=== PATIENT | female | born 1990 | race Two or more races ===

== ENCOUNTER 2023-03-07 05:44 | Observation (INO) | payer OTHER, SELFPAY ==
[2023-03-07] MEDS: LACTATED RINGER'S SOLUTION 1,000 ML 1000 ML IV ×2 (06:18→07:10)
[2023-03-07 06:23] VITALS: TEMP 36.3
[2023-03-07 06:30] LABS: Basophils Percent Auto 0.2 % (0.2-2.0); Eosinophils Absolute Auto 0.2 10^3/uL (0.0-0.7); Eosinophils Percent Auto 1.6 % (0.9-7.0); Hematocrit 33.2 % (36.0-48.0); Hemoglobin 10.7 g/dL (12.0-16.0); Immature Granulocytes Abs Auto 0.05 10^3/uL (0.00-0.03); Immature Granulocytes Pct Auto 0.5 % (0.0-0.5); Lymphocytes Absolute Auto 2.8 10^3/uL (1.2-3.8); Lymphocytes Percent Auto 28.2 % (20.5-60.0); Mean Corpuscular HGB Conc 32.2 g/dL (29.9-35.2); Mean Corpuscular Hemoglobin 29.6 pg (26.7-34.0); Mean Corpuscular Volume 91.7 fL (81.0-99.0); Mean Platelet Volume 10.1 fL (9.5-13.5); Monocytes Absolute Auto 0.7 10^3/uL (0.3-0.8); Monocytes Percent Auto 6.6 % (1.7-12.0); Neutrophils Absolute Auto 6.3 10^3/uL (1.4-6.5); Neutrophils Percent Auto 62.9 % (43.0-75.0); Platelet Count 261 10^3/uL (150-450); Red Blood Count 3.62 10^6/uL (4.20-5.40); Red Cell Distribution Width 12.6 % (11.0-15.0)
[2023-03-07 06:31] LABS: Bilirubin Urine NEGATIVE (NEGATIVE); Blood Urine NEGATIVE (NEGATIVE); Clarity Urine CLEAR (CLEAR); Color Urine YELLOW (YELLOW); Glucose Urine UA NEGATIVE (NEGATIVE); Ketones Urine NEGATIVE (NEGATIVE); Leukocyte Esterase Urine NEGATIVE (NEGATIVE); Nitrite Urine NEGATIVE (NEGATIVE); Protein Urine NEGATIVE (NEG/TRACE); Specific Gravity Urine 1.025 (1.005-1.025); pH Urine 6.5 (5.0-9.0)
[2023-03-07 06:37] LABS: Bacteria Urine TRACE #/HPF (NONE SEEN); Cast Seen? NONE SEEN #/LPF (NONE SEEN); Crystals Seen? None Seen #/HPF (None Seen); Mucus Urine SMALL (NONE SEEN); RBC Urine 0-2 #/HPF (0-2); Squamous Epithelial Cell Urine MODERATE #/LPF (NONE/RARE); WBC Urine 0-2 #/HPF (NONE SEEN)
[2023-03-07 06:41] LABS: Cannabinoid Screen Urine NEGATIVE (NEGATIVE); Cocaine Screen Urine NEGATIVE (NEGATIVE); Methamphetamines Screen Urine NEGATIVE (NEGATIVE); Opiate Screen Urine NEGATIVE (NEGATIVE); Phencyclidine Screen Urine NEGATIVE (NEGATIVE)
[2023-03-07 06:42] VITALS: TEMP 36.3
[2023-03-07 06:42] LABS: Amphetamine Screen Urine NEGATIVE (NEGATIVE); Barbiturates Screen Urine NEGATIVE (NEGATIVE); Benzodiazepines Screen Urine NEGATIVE (NEGATIVE); Buprenorphine Screen Urine NEGATIVE (NEGATIVE); Methadone Screen Urine NEGATIVE (NEGATIVE); Oxycodone Screen Urine NEGATIVE (NEGATIVE); Tricyclic Antidepressant Urine NEGATIVE (NEGATIVE)
[2023-03-07 06:44] VITALS: BP 132/78
[2023-03-07] MEDS: CEFAZOLIN SODIUM/DEXTROSE,ISO 2 GM/50 ML PIGGYBACK IV (07:11)
[2023-03-07] MEDS: FAMOTIDINE/PF 20 MG/2 ML VIAL IV (07:11)
[2023-03-07] MEDS: CITRIC ACID/SODIUM CITRATE 30 ML SOLUTION ORACIT SHOHL'S SOLN PO (07:11)
--- NOTE | 2023-03-07 07:22 | P.OBHP_ITS ---
OB - H&P: HPI History of Present Illness Chief complaint: c section : 7 Para: 4 Gestational age based on last menstrual period: 39.1 History of Present Dating criteria: LMP confirmed by 1st trimester US care: good care Ultrasounds: normal 1st trimester US and normal mid trimester US complications comment: tobacco abuse Medical complications OB: none Labs Blood type: A (-) negative Rubella: immune RPR/VDLR: nonreactive GBS status: positive HBsAG: negative Review of Systems ROS Status of ROS: 10 or more systems reviewed and unremarkable except as noted in history and below PFSH PFS Medical History (Updated 03/07/23 @ 06:20 by Thomas Thomas) Heart burn ?R12 - Heartburn (ICD-10) Migraine ?G43.909 - Migraine, unspecified, not intractable, without status migrainosus (ICD-10) Surgical History (Updated 03/07/23 @ 06:21 by Thomas Thomas) History of tonsillectomy ?Z90.89 - Acquired absence of other organs (ICD-10) Hx of section ?Z98.891 - History of uterine scar from previous surgery (ICD-10) Family History (Updated 03/07/23 @ 06:23 by Thomas Thomas) Father Family history of myocardial infarction Family history of hypertension Grandmother Family history of cancer Social History (Updated 03/07/23 @ 06:22 by Thomas Thomas) Within the past year, how often did you have a drink containing alcohol: never Score interpretation: A score less than 3 is consistent with normal alcohol consumption. Smoking status: Current every day smoker Non-prescribed substance use: denies use Highest level of school completed/degree received: high school graduate Are you now , , , , never or living with a partner: living with partner In a typical week, how many times do you talk on the telephone with family, friends, or neighbors: 3 or more times per week How often do you get together with friends or relatives: 3 or more times per week How often do you attend protestant or tenriism services: never Little interest or pleasure in doing things: not at all Feeling down, depressed, or hopeless: not at all Feel stressed/tense/nervous/anxious/difficulty sleeping: not at all Do you think of yourself as: straight/heterosexual Gender Identity: female Meds Home Medications and Allergies Home Medications Medication Instructions Recorded Confirmed Type famotidine 20 mg tablet mg 03/07/23 History magnesium oxide 400 mg (241.3 mg mg 03/07/23 History magnesium) tablet vitamin with calcium tab 03/07/23 History no.72-iron 27 mg-folic acid 1 mg tablet ( Vitamins Plus Low Iron) Allergies Allergy/AdvReac Type Severity Reaction Status Date / Time No Known Drug Allergies Allergy Verified 03/07/23 06:18 Exam Constitutional Vital Signs, click to edit/add: Last Vital Signs Temp 97.3 F L 03/07/23 06:42 BP 132/78 03/07/23 06:44 Common normals: no apparent distress and oriented x3 HENMT Common normals: normocephalic Eye Common normals: EOMs intact bilaterally Neck & C-Spine Common normals: no lymphadenopathy Lymph Lymphatic: no lymphedema noted Chest Common normals: inspection of chest normal Respiratory Common normals: normal respiratory effort Cardio Common normals: regular rate and regular rhythm Rate: regular rate Rhythm: regular rhythm GI Common normals: Normal to inspection, nondistended, normoactive bowel sounds present Inspection: normal to inspection Auscultation: normoactive bowel sounds Palpation: soft and tender Percussion: normal to percussion Common normals: no CVA tenderness External Female Exam: normal appearance of the urethra Back & Pelvis Common normals: no CVA tenderness General back: CVA tenderness Extremity Common normals: normal to inspection Neuro Common normals: oriented x3 and moves all extremities Psych Common normals: mental status grossly normal and thought process normal Results Labs Labs: Short CBC 03/07/23 Range/Units 06:15 WBC 10.0 (4.0-11.0) 10^3/uL Hgb 10.7 L (12.0-16.0) g/dL Hct 33.2 L (36.0-48.0) % Plt Count 261 (150-450) 10^3/uL Urine 03/07/23 Range/Units 06:05 Urine Color Yellow (YELLOW) Urine Clarity Clear (CLEAR) Urine pH 6.5 (5.0-9.0) Ur Specific [place] 1.025 (1.005-1.025) Urine Protein Negative (NEG/TRACE) mg/dL Urine Glucose (UA) Negative (NEGATIVE) mg/dL OB - A/P Additional Plan Induction method: none Plan: other (repeat section )
--- NOTE | 2023-03-07 07:35 | W.PC.ACHO ---
Registration Status: ADM IN Primary Language: Armenian Preferred Language: Armenian Active Medications Generic Name Dose Route Start Last Admin Trade Name Freq PRN Reason Stop Dose Admin Lactated Ringer's 1,000 mls @ 1,000 mls/hr 03/07/23 06:00 03/07/23 07:10 Lactated Ringers IV 03/07/23 07:59 1,000 mls/hr .Q1H TRUNG Administration Diet Category Date Time Status NPO Diet Diet 03/07/23 05:50 Active Consults Category Date Time Status Consult to Anesthesiology Routine Cons 03/07/23 Ordered IV Insertion/Site Date of IV Line Insertion [20g 03/07/23 left Hand] IV Insertion Time [20g left 06:10 Hand] Neurology Patient orientation (short person,place,time,situation list)
--- NOTE | 2023-03-07 08:30 | PM.EN ---
Event Note Event Note: report given to Dr Zamudio of patient baby is breech. When he inquired about placenta location and US report reviewed, it is in an anterior position. He then called [facility] for evaluation of patient due to history of 4 sections and an anterior position of placenta. [facility] agrees to see this patient this morning. If the US report is acceptable and low risk for accreta patient will return to [facility] and Dr Zamudio and I will do her C/S tomorrow morning. I explained this to patient and her significant other. Patient is upset and tearful but understands. Her significant other states thank you for doing this now, and not having the problem in the surgery, i appreciate that. We did discuss the risk factors of possible accreta, hemorrhage, emergency hysterectomy. We did discuss that [facility] do not have enough blood at times for such emergencies, and by going to [facility] for evaluation it is the safest decision for her and her baby. PVU Dr Ortiz at [facility] at [facility] has agreed to see the patient this morning and will evaluate where she should deliver based on his assessment. Patient and her significant other both agree on the plan of care and all questions answered. Patient is discharged from unit and she and significant other driving to [place] in private vehicle.
--- OUTSIDE RECORDS SUMMARY | 2023-03-08 08:32 | XMS_ITS | CCD ---
Author Name Unknown Address [address] [place] [address] Organization [facility] Care Team Providers Care Salvage Winder And Inspector Name Role Phone [facility] Unavailable Unavailable [facility] Unavailable Unavailable Chnaa Platt Primary Care Provider [phone] Unavailable Primary Care Provider Unavailabl e Unavailable Primary Care Provider Unavailabl e Unavailable Primary Care Provider Unavailabl e Unavailable Primary Care Provider Unavailabl e Unavailable Primary Care Provider Unavailabl e PAULINA ROSAS Attending Unavailable PAULINA ROSAS Attending Unavailable MOSQUERA, IKER Referring Unavailable MOSQUERA, IKER Referring Unavailable MOSQUERA, IKER Referring Unavailable KENNEDY MARADIAGA Attending Unavailable KENNEDY MARADIAGA Attending Unavailable FLORKENNEDY Le Attending Unavailable KENNEDY MARADIAGA Attending Unavailable KENNEDY MARADIAGA Attending Unavailable Allergies Allergy Classification Reported Allergen(s) Allergy Type Date of Onset Reaction(s) Facility Bee/Wasp/Ant Venom (1 source) bee venom Substance Allergy 11-28-2019 [place] (6 sources) bee venom Propensity to adverse reactions to drug 11-28-2019 [place]- [place], [place] Medications Current Medications Medication Drug Class(es) Dates Sig (Normalized) Sig (Original) acetaminophen 325 mg oral tablet (20 sources) Start: 09-25-2019 take 650 mg by mouth every four hours as needed for pain, then take 4000 mg by mouth every twenty-four hours as needed for pain 650 mg, Oral, EVERY 4 HOURS PRN, Pain Mild (1-3), Fever, Fever >100.5 F (38 C), Starting Sat09/25/19 at 1020 Maximum dose of acetaminophen is 4000 mg from all sources in 24 hours. Start: 03-04-2019 End: 03-04-2019 acetaminophen (TYLENOL) tabl et 1,000 mg Start: 03-01-2019 End: 03-01-2019 acetaminophen (TYLENOL) tabl et 1,000 mg Start: 01-03-2019 End: 01-03-2019 acetaminophen (TYLENOL) tabl et 1,000 mg take 1 tablet by shira th every six hours as needed for pain acetaminophen (TYLENOL) 500 MG tablet Take 500 mg by mouth every 6 hours as needed for Pain 0 Active End: 09-27-2019 take 2 tablets by mouth every six hours as needed for pain acetaminophen (TYLENOL) 500 MG tablet Take 1,000 mg by mouth every 6 hours as needed for Pain 0 09/27/2019 Discontinued (Stop Taking at Discharge) acetaminophen 325 mg / oxyCODONE hydrochloride 5 mg oral tablet (3 sources) Opioid Agonist Start: 09-27-2019 End: 09-30-2019 take 1 tablet by mouth every four hours as needed for pain oxyCODONE-acetaminophen (PERCOCET) 5-325 MG per tablet Indications: delivery delivered Take 1 tablet by mouth every 4 hours as needed (Breakthrough pain.) for up to 3 days. 18 tablet 0 09/27/2019 09/30/2019 Active Start: 09-25-2019 oxyCODONE-acet aminophen (PERCOCET) 5-325 MG per tablet 2 tablet albuterol 0.833 mg/ml / ipratropium bromide 0.167 mg/ml inhalation solution (1 source) Anticholinergic, beta2-Adrenergic Agonist Start: 03-01-2019 ipratropium-albuterol (DUONEB) nebulizer solution 1 ampule Start: 03-01-2019 ipratropium-al buterol (DUONEB) nebulizer solution 1 ampule alginic acid 200 mg / calciu m carbonate 80 mg / magnesium trisilicate 20 mg / sodium bicarbonate 70 mg oral tablet (1 source) Start: 09-26-2019 calcium carbon ate (TUMS) chewable tablet 500 mg calcium chloride 0.0014 meq/ ml / potassium chloride 0.004 meq/ml / sodium chloride 0.103 meq/ml / sodium lactate 0.028 meq/ml injectable solution (3 sources) Start: 09-25-2019 Intravenous, a t 125 mL/hr, CONTINUOUS, Starting Sat09/25/19 at 1045, Start: 09-25-2019 End: 09-25-2019 lactated ringers infusion 1, 000 mL cyclobenzaprine hydrochloride 10 mg oral tablet (1 source) Muscle Relaxant Start: 10-03-2020 End: 10-08-2020 take 1 tablet by mouth once daily as needed for muscle spasms cyclobenzaprine (FLEXERIL) 10 MG tablet Take 1 tablet by mouth nightly as needed for Muscle spasms 5 tablet 0 10/03/2020 10/08/2020 Active docusate sodium 100 mg oral capsule (1 source) Start: 09-25-2019 take 100 mg by mouth twice daily 100 mg, Oral, 2 TIMES DAILY, First dose on Sat09/25/19 at 1045 Do not crush or break. 0.4 ml enoxaparin sodium 100 mg/ml prefilled syringe (1 source) Low Molecular Weight Heparin Start: 09-26-2019 inject 40 mg by subcutaneous injection every twenty-four hours 40 mg, Subcutaneous, EVERY 24 HOURS, First dose on Sat09/26/19 at 0600, [id number] 0.3 ml EPINEPHrine 1 mg/ml auto-injector (6 sources) alpha-Adrenergic Agonist, beta-Adrenergic Agonist, Catecholamine Start: 11-24-2019 EPINEPHrine (EPIPEN 2-YANICK) 0.3 MG/0.3ML SOAJ injection Inject 0.3 mLs into the muscle once for 1 dose Use as directed for allergic reaction 1 each 0 11/24/2019 Active famotidine 20 mg oral tablet (9 sources) Histamine-2 Receptor Antagonist Start: 11-24-2019 End: 12-04-2019 take 1 tablet by mouth twice daily famotidine (PEPCID) 20 MG tablet Take 1 tablet by mouth 2 times daily for 10 days 20 tablet 0 11/24/2019 Active Start: 11-24-2019 famotidine (PE PCID) injection 20 mg Start: 09-25-2019 End: 09-25-2019 famotidine (PEPCID) injectio n 20 mg ibuprofen 600 mg oral tablet (17 sources) Nonsteroidal Anti-inflammatory Drug Start: 10-03-2020 take 1 tablet by mouth every six hours as needed for pain ibuprofen (IBU) 600 MG tablet Take 1 tablet by mouth every 6 hours as needed for Pain 30 tablet 0 10/03/2020 Active Start: 09-27-2019 End: 10-03-2020 take 1 tablet by mouth three times daily as needed for pain ibuprofen (ADVIL;MOTRIN) 800 MG tablet Take 1 tablet by mouth 3 times daily as needed for Pain 20 tablet 1 09/27/2019 10/03/2020 Discontinued (Therapy completed) Start: 09-26-2019 take 800 mg by mouth every eight hours 800 mg, Oral, EVERY 8 HOURS, First dose on 09/26/19 at 1400 Do not crush or chew. Start: 01-03-2019 End: 01-03-2019 ibuprofen (ADVIL;MOTRIN) tab let 600 mg take 1 tablet by shira th every six hours as needed for pain ibuprofen (ADVIL;MOTRIN) 200 MG tablet Take 200 mg by mouth every 6 hours as needed for Pain 0 Active End: 01-27-2019 take 2 tablets by mouth every six hours as needed for pain ibuprofen (ADVIL;MOTRIN) 200 MG tablet Take 400 mg by mouth every 6 hours as needed for Pain 0 01/27/2019 Discontinued (Therapy completed) lidocaine 0.04 mg/mg medicated patch (5 sources) Antiarrhythmic, Amide Local Anesthetic Start: 05-16-2020 lidocaine 4 % external patch 1 patch Start: 05-16-2020 apply 1 dose transde rmal route once daily lidocaine (LIDODERM) 5 % Place 1 patch onto the skin daily 12 hours on, 12 hours off. 10 patch 0 05/16/2020 Active 1 ml methylergonovine maleate 0.2 mg/ml injection (1 source) Ergot Derivative Start: 09-25-2019 200 mcg, Intramuscular, PRN, Bleeding, Starting Sat09/25/19 at 1020 PRN for post- hemorrhage, if not hypertensive. Post-op 1 ml naloxone hydrochloride 0.4 mg/ml injection (1 source) Opioid Antagonist Start: 09-25-2019 0.4 mg, Intravenous, PRN, Opioid Reversal, Starting Sat09/25/19 at 1020, Post-op 24 hr nicotine 0.875 mg/hr transdermal system (1 source) Cholinergic Nicotinic Agonist Start: 09-25-2019 nicotine (NICODERM CQ) 21 MG/24HR 1 patch ondansetron 4 mg disintegrating oral tablet (6 sources) Serotonin-3 Receptor Antagonist Start: 10-03-2020 End: 10-07-2020 take 1 tablet by mouth every eight hours as needed for nausea ondansetron (ZOFRAN ODT) 4 MG disintegrating tablet Take 1 tablet by mouth every 8 hours as needed for Nausea or Vomiting 12 tablet 0 10/03/2020 10/07/2020 Active Start: 10-03-2020 End: 10-03-2020 ondansetron (ZOFRAN) injecti on 4 mg Start: 03-15-2020 End: 03-15-2020 ondansetron (ZOFRAN) injecti on 4 mg Start: 09-25-2019 4 mg, Intraven ous, EVERY 6 HOURS PRN, Nausea, Starting 09/25/19 at 1020, Start: 03-04-2019 End: 03-04-2019 ondansetron (ZOFRAN) injecti on 4 mg Start: 12-14-2018 End: 12-14-2018 ondansetron (ZOFRAN-ODT) dis integrating tablet 4 mg 12 hr orphenadrine citrate 100 mg extended release oral tablet (1 source) Muscle Relaxant Start: 11-28-2019 End: 12-08-2019 take 1 tablet by mouth twice daily orphenadrine (NORFLEX) 100 MG extended release tablet Take 1 tablet by mouth 2 times daily for 10 days 20 tablet 0 11/28/2019 12/08/2019 Active topiramate 50 mg oral tablet (1 source) Start: 01-04-2022 take 1 tablet by mouth once daily topiramate (TOPAMAX) 50 MG tablet TAKE ONE TABLET BY MOUTH DAILY 30 tablet 1 01/04/2022 Active Completed/Discontinued Medications Medication Drug Class(es) Dates Sig (Normalized) Sig (Original) alpha-tocopherol acetate 30 unt / ascorbic acid 100 mg / beta carotene 1000 unt / calcium carbonate 200 mg / calcium pantothenate 7 mg / cholecalciferol 400 unt / docusate sodium 25 mg / ferrous fumarate 29 mg / folic acid 1 mg / niacinamide 15 mg / pyridoxine hydrochloride 20 mg / riboflavin 3 mg / thiamine 3 mg / vitamin b12 0.012 mg / zinc oxide 20 mg oral tablet (20 sources) Vitamin B12, Vitamin D, Vitamin C Start: 01-27-2019 End: 10-03-2020 take 1 tablet by mouth once daily Vit-DSS-Fe Fum-FA ( 19) 29-1 MG TABS Take 1 Dose by mouth daily 30 tablet 0 01/27/2019 10/03/2020 Discontinued (LIST CLEANUP) cefOXitin (MEFOXIN) 2 g in dextrose 5% 50 mL (mini-bag) (1 source) Start: 09-25-2019 End: 09-25-2019 cefOXitin (MEFOXIN) 2 g in dextrose 5% 50 mL (mini-bag) citric acid 66.8 mg/ml / sodium citrate 100 mg/ml oral solution (1 source) Calculi Dissolution Agent, Anti-coagulant Start: 09-25-2019 End: 09-25-2019 citric acid-sodium citrate (BICITRA) solution 30 mL 1 ml diphenhydrAMINE hydrochloride 50 mg/ml cartridge (3 sources) Histamine-1 Receptor Antagonist Start: 05-16-2020 End: 05-16-2020 diphenhydrAMINE (BENADRYL) injection 25 mg Start: 11-24-2019 End: 11-24-2019 diphenhydrAMINE (BENADRYL) i njection 50 mg Start: 10-16-2019 End: 10-16-2019 diphenhydrAMINE (BENADRYL) i njection 50 mg doxylamine succinate 25 mg oral tablet (5 sources) Start: 01-27-2019 End: 03-04-2019 take 1 tablet by mouth once daily as needed for sleep doxyLAMINE succinate (UNISOM) 25 MG tablet Take 1 tablet by mouth nightly as needed for Sleep 14 tablet 0 01/27/2019 03/04/2019 Discontinued (Therapy completed) ferrous sulfate 325 mg oral tablet (18 sources) End: 10-03-2020 take 1 tablet by mouth twice daily ferrous sulfate (IRON 325) 325 (65 Fe) MG tablet Take 325 mg by mouth 2 times daily 0 10/03/2020 Discontinued (LIST CLEANUP) fluticasone propionate 0.05 mg/actuat metered dose nasal spray (8 sources) Corticosteroid Start: 03-01-2019 End: 07-03-2019 take 1 spray(s) nasal route once daily fluticasone (FLONASE) 50 MCG/ACT nasal spray 1 spray by Each Nostril route daily 1 Bottle 0 03/01/2019 07/03/2019 Discontinued (LIST CLEANUP) hydrocortisone acetate 10 mg/ml / pramoxine hydrochloride 10 mg/ml rectal foam (7 sources) Corticosteroid Start: 08-06-2019 End: 10-16-2019 Hydrocort-Pramoxi ne, Perianal, (PROCTOFOAM HC) 1-1 % rectal foam Apply 2 or 3 times a day as needed for pain 1 Can 0 08/06/2019 10/16/2019 Discontinued (LIST CLEANUP) iopamidol (ISOVUE-370) 76 % injection 75 mL (1 source) Start: 10-03-2020 End: 10-03-2020 iopamidol (ISOVUE-370) 76 % injection 75 mL 1 ml ketorolac tromethamine 15 mg/ml cartridge (4 sources) Nonsteroidal Anti-inflammatory Drug, Cyclooxygenase Inhibitor Start: 10-03-2020 End: 10-03-2020 ketorolac (TORADOL) injection 30 mg Start: 03-15-2020 End: 03-15-2020 ketorolac (TORADOL) injectio n 15 mg Start: 10-16-2019 End: 10-16-2019 ketorolac (TORADOL) injectio n 30 mg Start: 09-25-2019 End: 09-26-2019 30 mg, Intravenous, EVERY 6 HOURS, First dose on Sat09/25/19 at 1430, For 4 doses Do not administer for more than 5 days. magnesium citrate (1 source) Start: 08-06-2019 End: 08-06-2019 magnesium citrate solution 296 mL methylPREDNISolone 4 mg oral tablet (3 sources) Corticosteroid Start: 11-24-2019 End: 11-30-2019 methylPREDNISolone (MEDROL, YANICK,) 4 MG tablet Take by mouth. 1 kit 0 11/24/2019 11/28/2019 Discontinued Start: 11-24-2019 End: 11-24-2019 methylPREDNISolone sodium (S NICKY-MEDROL) injection 125 mg 2 ml metoclopramide 5 mg/ml prefilled syringe (2 sources) Dopamine-2 Receptor Antagonist Start: 10-16-2019 End: 10-16-2019 metoclopramide (REGLAN) injection 10 mg Start: 09-25-2019 End: 09-25-2019 metoclopramide (REGLAN) inje ction 10 mg predniSONE 20 mg oral tablet (4 sources) Start: 11-28-2019 End: 10-03-2020 take 1 tablet by mouth three times daily predniSONE (DELTASONE) 20 MG tablet Indications: Strain of lumbar region, initial encounter Take 1 tablet by mouth 3 times daily 15 tablet 0 11/28/2019 10/03/2020 Discontinued (LIST CLEANUP) 2 ml prochlorperazine 5 mg/ml injection (1 source) Phenothiazine Start: 05-16-2020 End: 05-16-2020 prochlorperazine (COMPAZINE) injection 10 mg Start: 05-16-2020 End: 05-16-2020 prochlorperazine (COMPAZINE) injection 10 mg rho(d) immune globulin, human 1500 unt prefilled syringe (2 sources) Human Immunoglobulin G Start: 09-25-2019 End: 09-26-2019 inject 300 ug by intramuscular injection once 300 mcg, Intramuscular, ONCE, Sat09/25/19 at 1045, For 1 dose, Start: 07-03-2019 End: 07-03-2019 rho(D) immune globulin (HYPE RRHO S/D) injection 300 mcg 50 ml sodium chloride 9 mg/m l injection (6 sources) Start: 10-03-2020 End: 10-03-2020 0.9 % sodium chloride bolus Start: 03-15-2020 End: 03-15-2020 0.9 % sodium chloride bolus Start: 10-16-2019 End: 10-17-2019 0.9 % sodium chloride bolus Start: 09-25-2019 10 mL, Intrave nous, EVERY 12 HOURS SCHEDULED (2 times per day), First dose on Sat09/25/19 at 1045, Start: 09-25-2019 take 10 mL intravenous route o nce 10 mL, Intravenous, PRN, Line Care, Starting Sat09/25/19 at 1020 After every IV line use Start: 03-04-2019 End: 03-04-2019 0.9 % sodium chloride bolus vitamin b6 50 mg oral tablet (5 sources) Start: 01-27-2019 End: 03-04-2019 take 0.5 tablet by mouth once daily vitamin B-6 (PYRIDOXINE) 50 MG tablet Take 0.5 tablets by mouth daily 30 tablet 0 01/27/2019 03/04/2019 Discontinued (Therapy completed) Problems Active Problems Problem Classification Problem Date Documented Da te Episodic/Chronic Abdominal pain (20 sources) Epigastric pain; Translations: [Abdominal pain in ] Onset: 6 04-08-2017 Episodic Disorders of lipid metabolism (2 sources) Pure hypercholesterolemia, unspecified; Translations: [Pure hypercholesterolemia, unspecified] Onset: 2 Chronic Esophageal disorders (20 sources) Gastroesophageal reflux disease; Translations: [Gastro-esophageal reflux disease without esophagitis] Onset: 4 11-13-2013 Chronic Headache; including migraine (20 sources) Migraine; Translations: [Migraine, unspecified, not intractable, without status migrainosus] Onset: 7 08-27-2016 Chronic Headache; including migraine (2 sources) Headache disorder; Translations: [Headache] Episodic Hemorrhoids (1 source) External hemorrhoids without complication; Translations: [External hemorrhoids without complication] Episodic Other gastrointestinal disorders (1 source) Constipation; Translations: [Constipation, unspecified constipation type] Episodic Poisoning by nonmedicinal substances (1 source) Allergic reaction to bee sting; Translations: [Local reaction to bee sting, accidental or unintentional, initial encounter] Episodic Polyhydramnios and other problems of amniotic cavity (1 source) Oligohydramnios with problem; Translations: [Oligohydramnios, antepartum, single or unspecified fetus] Episodic Residual codes; unclassified (7 sources) H/O: section; Translations: [Status post repeat low transverse section] 09-25-2019 Episodic Spondylosis; intervertebral disc disorders; other back problems (2 sources) Sciatica; Translations: [Acute back pain with sciatica] Episodic Sprains and strains (10 sources) Low back strain; Translations: [Strain of muscle, fascia and tendon of lower back, initial encounter] Onset: 0 11-28-2019 Episodic Substance-related disorders (10 sources) Nicotine dependence; Translations: [Nicotine dependence, cigarettes, uncomplicated] Onset: 9 09-25-2019 Chronic Unclassified (1 source) Less than 8 weeks gestation of ; Translations: [LESS THAN 8 WEEKS GESTATION OF ] Onset: 6 Unclassified (1 source) Sprain of left wrist; Translations: [Sprain of left wrist, initial encounter] Unclassified (1 source) Patient encounter status; Translations: [ screening for malformation using ultrasonics] Past or Other Problems Problem Classification Problem Date Documented Da te Episodic/Chronic Abdominal hernia (12 sources) Hernia of anterior abdominal wall; Translations: [Ventral hernia without obstruction or gangrene] Onset: 09-25-2019 09-25-2019 Episodic Nausea and vomiting (1 source) Nausea and vomiting; Translations: [Non-intractable vomiting with nausea, unspecified vomiting type] Episodic Nonmalignant breast conditions (20 sources) Breast lump; Translations: [Unspecified lump in the right breast, overlapping quadrants] Onset: 11-14-2017 11-14-2017 Episodic Other complications of ; puerperium affecting management of mother (20 sources) delivery - delivered; Translations: [Encounter for delivery without indication] Onset: 05-03-2017 Resolved: 05-05-2017 05-05-2017 Episodic Other complications of (2 sources) related conditions, unspecified, first trimester; Translations: [Smoking (tobacco) complicating , first trimester] Onset: 10-16-2015 Episodic Other complications of (20 sources) Reduced movement; Translations: [Decreased movements, unspecified trimester, not applicable or unspecified] Onset: 06-18-2019 06-18-2019 Episodic Other complications of (4 sources) Abdominal pain in ; Translations: [Other specified related conditions, unspecified trimester] Onset: 04-08-2017 04-08-2017 Episodic Other connective tissue disease (1 source) Myalgia, other site; Translations: [Myalgia, other site] Onset: 10-30-2021 Episodic Other lower respiratory disease (20 sources) Cough; Translations: [Cough] Resolved: 06-26-2017 06-26-2017 Episodic Other and delivery including normal (20 sources) ; Translations: [Intrauterine ] Onset: 02-18-2017 02-18-2017 Episodic Other upper respiratory infections (1 source) Viral upper respiratory tract infection Episodic Results Test Name Value Interpretation Reference Range Facility US OB 1ST Trimesteron 2022 US OB 1ST Trimester CLINICAL INDICATION: Dating COMPARISON: None FINDINGS: A single intrauterine is seen. The uterus measures 9.7 x 5.4 x 8.0 cm. The maternal ovaries are not visualized. The cervix measures 3.2 cm in length. cardiac activity is 103 bpm. Bradbury-rump length is 0.4 cm for gestational age of 6 weeks 0 days. IMPRESSION: Single living intrauterine with estimated gestational age of 6 weeks 0 days. Estimated due date of 03/13/23. Report reported and signed by Edi Carrizales on 07/18/2022 1602 Normal [facility] XR KNEE LEFT (3 VIEWS)on XR KNEE LEFT (3 VIEWS) EXAM: XR Left Knee, 3 Views EXAM DATE/TIME: 03/03/2022 2:08 pm CLINICAL HISTORY: ORDERING SYSTEM PROVIDED pain TECHNOLOGIST PROVIDED HISTORY: pain TECHNIQUE: Three views of the left knee. COMPARISON: No relevant prior studies available. FINDINGS: Bones/joints: No significant arthritic changes noted. Soft tissues: Prominence of the suprapatellar bursa suggests a small joint effusion. IMPRESSION: 1. Prominence of the suprapatellar bursa suggests a small joint effusion. 2. No evidence of fracture or malalignment. Interpreted by: Van Castle MD Signed by: Van Castle MD 03/03/22 Final result Normal [facility] 1. Prominence of the suprapatellar bursa suggests a small joint effusion. 2. No evidence of fracture or malalignment. [facility] CONSOL[facility] EXAM: XR Left Knee, 3 Views EXAM DATE/TIME: 03/03/2022 2:08 pm CLINICAL HISTORY: ORDERING SYSTEM PROVIDED pain TECHNOLOGIST PROVIDED HISTORY: pain TECHNIQUE: Three views of the left knee. COMPARISON: No relevant prior studies available. FINDINGS: Bones/joints: No significant arthritic changes noted. Soft tissues: Prominence of the suprapatellar bursa suggests a small joint effusion. [facility] Van Castle MD - 03/03/2022 EXAM: XR Left Knee, 3 Views EXAM DATE/TIME: 03/03/2022 2:08 pm CLINICAL HISTORY: ORDERING SYSTEM PROVIDED pain TECHNOLOGIST PROVIDED HISTORY: pain TECHNIQUE: Three views of the left knee. COMPARISON: No relevant prior studies available. FINDINGS: Bones/joints: No significant arthritic changes noted. Soft tissues: Prominence of the suprapatellar bursa suggests a small joint effusion. IMPRESSION: 1. Prominence of the suprapatellar bursa suggests a small joint effusion. 2. No evidence of fracture or malalignment. [facility] Work Phone: Radiology Study observation (narrative) [facility] Work Phone: XR KNEE LEFT (3 VIEWS)Darron langley By: Van Castle on 03-03-2022 [facility] Work Phone: CBC with Diffon 10-30-2021 Abs. Basophil 0.05 k/uL Normal 0.00-0.20 [facility] Comment on above: Performed By: #### C DP, CP #### [address] [place], [place] [id number] Custom Frame Assembler: Jasson Osorio MD Abs.Imm.Granulocyte 0.04 k/uL Normal 0.00-0.30 [facility] Comment on above: Performed By: #### C DP, CP #### [address] [place], [facility] Custom Frame Assembler: Jasson Osorio MD Abs.Neutrophil (Seg) 4.86 k/uL Normal 1.50-8.10 [facility] Comment on above: Performed By: #### C DP, CP #### [address] [place] [address] Custom Frame Assembler: Jasson Osorio MD Basophils/100 WBC (Bld) 1 % Normal 0-2 [facility] Comment on above: Performed By: #### C DP, CP #### [address] [place] [address] Custom Frame Assembler: Jasson Osorio MD Eosinophils (Bld) [#/Vol] 0.19 10*3/uL Normal 0.00-0.44 [facility] Comment on above: Performed By: #### C DP, CP #### [address] [place], [place] [id number] Custom Frame Assembler: Jasson Osorio MD Eosinophils/100 WBC (Bld) 2 % Normal 1-4 [facility] Comment on above: Performed By: #### C DP, CP #### [facility] [address] [place], [place] [id number] Custom Frame Assembler: Jasson Osorio MD Erythrocyte distribution width (RBC) [Ratio] 12.7 % Normal 11.8-14.4 [facility] Comment on above: Performed By: #### C DP, CP #### [address] [place], [facility]83 Custom Frame Assembler: Jasson Osorio MD Hematocrit (Bld) [Volume fraction] 39.6 % Normal 36.3-47.1 [facility] Comment on above: Performed By: #### C DP, CP #### [address] [place], [place] [id number] Custom Frame Assembler: Jasson Osorio MD Hemoglobin (Bld) [Mass/Vol] 12.6 g/dL Normal 11.9-15.1 [facility] Comment on above: Performed By: #### C DP, CP #### [address] [place], [place] [id number] Custom Frame Assembler: Jasson Osorio MD Immature granulocytes/100 WBC (Bld) 1 % High 0 [facility] Comment on above: Performed By: #### C DP, CP #### [address] [place], [place] [id number] Custom Frame Assembler: Jasson Osorio MD Lymphocytes (Bld) [#/Vol] 3.16 10*3/uL Normal 1.10-3.70 [facility] Comment on above: Performed By: #### C DP, CP #### [address] [place], [place] [id number] Custom Frame Assembler: Jasson Osorio MD Lymphocytes/100 WBC (Bld) 36 % Normal 24-43 [facility] Comment on above: Performed By: #### C DP, CP #### [address] [place] [address] Custom Frame Assembler: Jasson Osorio MD MCH (RBC) [Entitic mass] 28.6 pg Normal 25.2-33.5 [facility] Comment on above: Performed By: #### C DP, CP #### [address] [place], [facility]83 Custom Frame Assembler: Jasson Osorio MD MCHC (RBC) [Mass/Vol] 31.8 g/dL Normal 28.4-34.8 [facility] Comment on above: Performed By: #### C DP, CP #### [address] [place] [id number] Custom Frame Assembler: Jasson Osorio MD MCV (RBC) [Entitic vol] 89.8 fL Normal 82.6-102.9 [facility] Comment on above: Performed By: #### C DP, CP #### [address] [place], [facility]83 Custom Frame Assembler: Jasson Osorio MD Monocytes (Bld) [#/Vol] 0.49 10*3/uL Normal 0.10-1.20 [facility] [facility] Comment on above: Performed By: #### C DP, CP #### [address] [place], [facility]83 Custom Frame Assembler: Jasson Osorio MD Monocytes/100 WBC (Bld) 6 % Normal 3-12 [facility] Comment on above: Performed By: #### C DP, CP #### [address] [place], [place] [id number] Custom Frame Assembler: Jasson Osorio MD Neutrophil (Seg) 54 % Normal 36-65 [facility] Comment on above: Performed By: #### C DP, CP #### [address] [place], [place] [id number] Custom Frame Assembler: Jasson Osorio MD NRBC Automated 0.0 per 100 WBC Normal 0.0 [facility] Comment on above: Performed By: #### C DP, CP #### [facility] [address] [place] [address] [place] [id number] Custom Frame Assembler: Jasson Osorio MD Platelet mean volume (Bld) [Entitic vol] 10.7 fL Normal 8.1-13.5 [facility] Comment on above: Performed By: #### C DP, CP #### [address] [place] [id number] Custom Frame Assembler: Jasson Osorio MD Platelets (Bld) [#/Vol] 263 10*3/uL Normal 138-453 [facility] Comment on above: Performed By: #### C DP, CP #### [address] [place] [address] Custom Frame Assembler: Jasson Osorio MD RBC (Bld) [#/Vol] 4.41 10*6/uL Normal 3.95-5.11 [facility] Comment on above: Performed By: #### C DP, CP #### [address] [place] [id number] Custom Frame Assembler: Jasson Osorio MD WBC (Bld) [#/Vol] 8.8 10*3/uL Normal 3.5-11.3 [facility] Comment on above: Performed By: #### C DP, CP #### [address] [place] [id number] Custom Frame Assembler: Jasson Osorio MD CT ABDOMEN PELVIS WO CONTRAS Ton 10-30-2021 CT ABDOMEN PELVIS WO CONTRAST EXAMINATION: CT OF THE ABDOMEN AND PELVIS WITHOUT CONTRAST 10/30/2021 8:56 am TECHNIQUE: CT of the abdomen and pelvis was performed without the administration of intravenous contrast. Multiplanar reformatted images are provided for review. Automated exposure control, iterative reconstruction, and/or weight based adjustment of the mA/kV was utilized to reduce the radiation dose to as low as reasonably achievable. COMPARISON: CT abdomen and pelvis performed 10/03/2020. HISTORY: ORDERING SYSTEM PROVIDED HISTORY: left flank pain TECHNOLOGIST PROVIDED HISTORY: left flank pain Decision Support Exception - unselect if not a suspected or confirmed emergency medical condition->Emergenc y Medical Condition (MA) Is the patient ?->No FINDINGS: Lower Chest: The lung bases are without consolidation or effusion. The visualized cardiac structures are unremarkable. Organs: The liver and spleen are normal size and overall attenuation. The gallbladder, pancreas, and adrenal glands are unremarkable. The kidneys are without obstructive uropathy. The urinary bladder is unremarkable. GI/Bowel: The stomach is contracted and otherwise unremarkable. Loops of small bowel are normal in caliber without evidence for obstruction. The colon contains air and fecal residue. The appendix is normal. There is no free air or free fluid. Pelvis: The uterus is age-appropriate. Peritoneum/Retroper itoneum: The psoas muscles are symmetric. The abdominal aorta is normal in caliber. The inferior vena cava is unremarkable. There is no retroperitoneal or mesenteric adenopathy. Bones/Soft Tissues: There is a large fat containing periumbilical hernia. There is no acute osseous abnormality. IMPRESSION: No acute abdominal or pelvic abnormality. Large fat containing periumbilical hernia. Interpreted by: Destin Wilson MD Signed by: Destin Wilson MD 10/30/21 Final result Normal [facility] Comp Metabolic Profon 2021 ALT [Catalytic activity/Vol] 26 U/L Normal 5-33 [facility] Comment on above: Performed By: #### C DP, CP #### [facility] [address] [place] [address] [place] [address] Custom Frame Assembler: Jasson Osorio MD AST [Catalytic activity/Vol] 29 U/L Normal <32 [facility] Comment on above: Performed By: #### C DP, CP #### [facility] [address] [place] [address] Custom Frame Assembler: Jasson Osorio MD Potassium [Moles/Vol] 4.5 mmol/L Normal 3.7-5.3 [facility] Comment on above: Performed By: #### C DP, CP #### [facility] [address] [place] [address] [place] [address] Custom Frame Assembler: Jasson Osorio MD (cont.) Normal [facility] Comment on above: Result Comment: Aver age GFR for 30-39 years old: 107 mL/min/1.73sq m Chronic Kidney Disease: <60 mL/min/1.73sq m Kidney failure: <15 mL/min/1.73sq m eGFR calculated using average adult body mass. Additional eGFR calculator available at: http://www.Oxtex/multiple_crcl_2012.htm Performed By: #### C DP, CP #### [address] [place] [address] Custom Frame Assembler: Jasson Osorio MD Albumin [Mass/Vol] 4.2 g/dL Normal 3.5-5.2 [facility] Comment on above: Performed By: #### C SOFÍA, CP #### [facility] [address] [place] [address] [place], [place] [id number] Custom Frame Assembler: Jasson Osorio MD Albumin/Glob Ratio 1.8 Normal 1.0-2.5 [facility] Comment on above: Performed By: #### C DP, CP #### [facility] [address] [place] [address] [place], [place] [id number] Custom Frame Assembler: Jasson Osorio MD Alkaline Phos 67 U/L Normal 35-104 [facility] Comment on above: Performed By: #### C DP, CP #### [facility] [address] [place] [address] [place], [place] [id number] Custom Frame Assembler: Jasson Osorio MD Anion gap [Moles/Vol] 11 mmol/L Normal 9-17 [facility] Comment on above: Performed By: #### C DP, CP #### [facility] [address] [place] [address] [place] [address] Custom Frame Assembler: Jasson Osorio MD Bilirubin [Mass/Vol] 0.27 mg/dL Low 0.3-1.2 [facility] Comment on above: Performed By: #### C DP, CP #### [facility] [address] [place], [place] [id number] Custom Frame Assembler: Jasson Osorio MD BUN/CRE Ratio 23 High 9-20 [facility] Comment on above: Performed By: #### C DP, CP #### [facility] [address] [place], [place] [id number] Custom Frame Assembler: Jasson Osorio MD Calcium [Mass/Vol] 8.9 mg/dL Normal 8.6-10.4 [facility] Comment on above: Performed By: #### C DP, CP #### [facility] [address] [place], [place] [id number] Custom Frame Assembler: Jasson Osorio MD Chloride [Moles/Vol] 106 mmol/L Normal 98-107 [facility] Comment on above: Performed By: #### C DP, CP #### [facility] [address] [place], [place] [id number] Custom Frame Assembler: Jasson Osorio MD CO2 [Moles/Vol] 23 mmol/L Normal 20-31 [facility] Comment on above: Performed By: #### C DP, CP #### [facility] [address] [place], [place] [id number] Custom Frame Assembler: Jasson Osorio MD Creatinine [Mass/Vol] 0.52 mg/dL Normal 0.50-0.90 [facility] Comment on above: Performed By: #### C DP, CP #### [facility] [address] [place], [place] [id number] Custom Frame Assembler: Jasson Osorio MD GFR, Amer >60 Normal >60 [facility] Comment on above: Performed By: #### C DP, CP #### [facility] [address] [place], [place] [id number] Custom Frame Assembler: Jasson Osorio MD GFR,non Amer >60 Normal >60 [facility] Comment on above: Performed By: #### C DP, CP #### [facility] [address] [place], [place] [id number] Custom Frame Assembler: Jasson Osorio MD Glucose [Mass/Vol] 105 mg/dL High 70-99 [facility] Comment on above: Performed By: #### C DP, CP #### [facility] [address] [place], [place] [id number] Custom Frame Assembler: Jasson Osorio MD Protein [Mass/Vol] 6.6 g/dL Normal 6.4-8.3 [facility] Comment on above: Performed By: #### C DP, CP #### [facility] [address] [place] [address] [place], [place] [id number] Custom Frame Assembler: Jasson Osorio MD Sodium [Moles/Vol] 140 mmol/L Normal 135-144 [facility] Comment on above: Performed By: #### C DP, CP #### [address] [place], [place] [id number] Custom Frame Assembler: Jasson Osorio MD Staging: Normal [facility] Comment on above: Result Comment: Stag e 1: Some kidney damage normal GFR Stage 2: Mild kidney damage GFR 60-89 Stage 3: Moderate kidney damage GFR 30-59 Stage 4: Severe kidney damage GFR 15-29 Stage 5: Severe kidney damage GFR <15 ESRD - chronic treatment by dialysis or transplant Performed By: #### C DP, CP #### [facility] [address] [place], [place] [id number] Custom Frame Assembler: Jasson Osorio MD Urea nitrogen [Mass/Vol] 12 mg/dL Normal 6-20 [facility] Comment on above: Performed By: #### C DP, CP #### [facility] [address] [place], [place] [id number] Custom Frame Assembler: Jasson Osorio MD HCG, ,Urineon 10-30 Beta HCG ( test) Ql (U) Negative Normal NEG [facility] Comment on above: Result Comment: Spec imens with hCG levels near the threshold of the test (25 mIU/mL) may give a negative or indeterminate result. In such cases, another test should be performed with a new specimen in 48-72 hours. If early is suspected clinically in this setting, correlation with quantitative serum b-hCG level is suggested. [facility] has confirmed the use of plasma for this test. This has not been cleared or approved by the U.S. Food and Drug Administration. The FDA has determined that such clearance is not necessary. Performed By: #### U HCG, UMICAO, UAX #### [facility] [address] [place] [address] Custom Frame Assembler: Jasson Osorio MD UA w/Reflex Cultureon 2021 Bilirubin, SemiQt,Ur Negative Normal NEG [facility] Comment on above: Performed By: #### U HCG, UMICAO, UAX #### [facility] [address] [place] [address] Custom Frame Assembler: Jasson Osorio MD Blood, Urine 1+ Abnormal NEG [facility] Comment on above: Performed By: #### U HCG, UMICAO, UAX #### [facility] [address] [place], [place] [id number] Custom Frame Assembler: Jasson Osorio MD Clarity (U) Clear Normal CLEAR [facility] Comment on above: Performed By: #### U HCG, UMICAO, UAX #### [facility] [address] [place] [address] Custom Frame Assembler: Jasson Osorio MD Color (U) Yellow Normal YEL [facility] Comment on above: Performed By: #### U HCG, UMICAO, UAX #### [facility] [address] [place] [address] Custom Frame Assembler: Jasson Osorio MD Glucose Ql (U) Negative Normal NEG [facility] Comment on above: Performed By: #### U HCG, UMICAO, UAX #### [facility] [address] [place] [address] [place], [place] [id number] Custom Frame Assembler: Jasson Osorio MD Ketones Ql (U) Negative Normal NEG [facility] Comment on above: Performed By: #### U HCG, UMICAO, UAX #### [facility] [address] [place] [address] Custom Frame Assembler: Jasson Osorio MD Leukocyte esterase Test strip Ql (U) Negative Normal NEG [facility] Comment on above: Performed By: #### U HCG, UMICAO, UAX #### [address] [place], [place] [id number] Custom Frame Assembler: Jasson Osorio MD Nitrite,Ur Negative Normal NEG [facility] Comment on above: Performed By: #### U HCG, UMICAO, UAX #### [facility] [address] [place] [address] [place] [address] Custom Frame Assembler: Jasson Osorio MD PH,Ur 6.0 Normal 5.0-9.0 [facility] Comment on above: Performed By: #### U HCG, UMICAO, UAX #### [address] [place], [place] [id number] Custom Frame Assembler: Jasson Osorio MD Protein Ql (U) Negative Normal NEG [facility] Comment on above: Performed By: #### U HCG, UMICAO, UAX #### [facility] [address] [place] [address] [place], [place] [phone] Custom Frame Assembler: Jasson Osorio MD Spec. Kiana,Ur 1.025 High 1.010-1.020 [facility] Comment on above: Performed By: #### U HCG, UMICAO, UAX #### [facility] [address] [place] [address] [place], [place] [id number] Custom Frame Assembler: Jasson Osorio MD Urobilinogen,Ur Normal Normal NORM [facility] Comment on above: Performed By: #### U HCG, UMICAO, UAX #### [facility] [address] [place] [address] Custom Frame Assembler: Jasson Osorio MD Urinalysis,Microon 2 Epithelial cells LM Ql (Urine sed) 5 TO 10 Normal 0-25 [facility] Comment on above: Performed By: #### U HCG, UMICAO, UAX #### [facility] [address] [place] [address] Custom Frame Assembler: Jasson Osorio MD Urine RBC's 0 TO 2 Normal 0-2 [facility] Comment on above: Performed By: #### U HCG, UMICAO, UAX #### [facility] [address] [place], [facility]83 Custom Frame Assembler: Jasson Osorio MD Urine WBC's 2 TO 5 Normal 0-5 [facility] Comment on above: Performed By: #### U HCG, UMICAO, UAX #### [facility] [address] [place] [address] Custom Frame Assembler: Jasson Osorio MD [facility] ILIR DIGITAL DIAGNOSTIC BILATERALon 06-30-2021 [facility] ILIR DIGITAL DIAGNOSTIC BILATERAL EXAMINATION: DIAGNOSTIC DIGITAL BILATERAL BREASTS MAMMOGRAM WITH TOMOSYNTHESIS; TARGETED ULTRASOUND OF THE LEFT BREAST, 06/30/2021 8:44 am TECHNIQUE: Diagnostic mammography of the bilateral breasts was performed with tomosynthesis. 2D standard and 3D tomosynthesis combination imaging performed through both breasts. Computer aided detection was utilized in the interpretation of this exam.; Target ultrasound of the left breast was performed. Views: COMPARISON: November 14, 2017 HISTORY: ORDERING SYSTEM PROVIDED HISTORY: Left breast mass TECHNOLOGIST PROVIDED HISTORY: Is the patient ?->No FINDINGS: Mammogram: Breasts are composed of scattered fibroglandular density. There is no dominant mass, architectural distortion or concerning grouping of microcalcification in either breast. Benign-appearing calcifications are stable. Ultrasound: Correlating with the area palpable concern directed by the patient 3 o'clock position 1 cm from nipple is a rounded 3 x 3 x 3 mm simple cyst with well-defined margins and anechoic echotexture wider than tall. IMPRESSION: No mammographic evidence of malignancy. BIRADS: BIRADS - CATEGORY 2 Benign Findings. Normal interval follow-up is recommended in 12 months. OVERALL ASSESSMENT - BENIGN A letter of notification will be sent to the patient regarding the results. [employer] recommends annual mammograms for women 40 years and older. Interpreted by: Lex Colunga DO Signed by: Lex Colunga DO 06/30/21 Final result Normal [facility] Radiology Study observation (narrative) [employer] Phone: No Panel Informationon 06-30 No mammographic evidence of malignancy. BIRADS: BIRADS - CATEGORY 2 Benign Findings. Normal interval follow-up is recommended in 12 months. OVERALL ASSESSMENT - BENIGN A letter of notification will be sent to the patient regarding the results. [employer] recommends annual mammograms for women 40 years and older. [facility] EXAMINATION: DIAGNOSTIC DIGITAL BILATERAL BREASTS MAMMOGRAM WITH TOMOSYNTHESIS; TARGETED ULTRASOUND OF THE LEFT BREAST, 06/30/2021 8:44 am TECHNIQUE: Diagnostic mammography of the bilateral breasts was performed with tomosynthesis. 2D standard and 3D tomosynthesis combination imaging performed through both breasts. Computer aided detection was utilized in the interpretation of this exam.; Target ultrasound of the left breast was performed. Views: COMPARISON: November 14, 2017 HISTORY: ORDERING SYSTEM PROVIDED HISTORY: Left breast mass TECHNOLOGIST PROVIDED HISTORY: Is the patient ?->No FINDINGS: Mammogram: Breasts are composed of scattered fibroglandular density. There is no dominant mass, architectural distortion or concerning grouping of microcalcification in either breast. Benign-appearing calcifications are stable. Ultrasound: Correlating with the area palpable concern directed by the patient 3 o'clock position 1 cm from nipple is a rounded 3 x 3 x 3 mm simple cyst with well-defined margins and anechoic echotexture wider than tall. [facility] No Panel InformationOrdered By: Lex Colunga on 06-30-2021 [facility] Phone: US BREAST LIMITED LEFTon US BREAST LIMITED LEFT EXAMINATION: DIAGNOSTIC DIGITAL BILATERAL BREASTS MAMMOGRAM WITH TOMOSYNTHESIS; TARGETED ULTRASOUND OF THE LEFT BREAST, 06/30/2021 8:44 am TECHNIQUE: Diagnostic mammography of the bilateral breasts was performed with tomosynthesis. 2D standard and 3D tomosynthesis combination imaging performed through both breasts. Computer aided detection was utilized in the interpretation of this exam.; Target ultrasound of the left breast was performed. Views: COMPARISON: November 14, 2017 HISTORY: ORDERING SYSTEM PROVIDED HISTORY: Left breast mass TECHNOLOGIST PROVIDED HISTORY: Is the patient ?->No FINDINGS: Mammogram: Breasts are composed of scattered fibroglandular density. There is no dominant mass, architectural distortion or concerning grouping of microcalcification in either breast. Benign-appearing calcifications are stable. Ultrasound: Correlating with the area palpable concern directed by the patient 3 o'clock position 1 cm from nipple is a rounded 3 x 3 x 3 mm simple cyst with well-defined margins and anechoic echotexture wider than tall. IMPRESSION: No mammographic evidence of malignancy. BIRADS: BIRADS - CATEGORY 2 Benign Findings. Normal interval follow-up is recommended in 12 months. OVERALL ASSESSMENT - BENIGN A letter of notification will be sent to the patient regarding the results. [employer] recommends annual mammograms for women 40 years and older. Interpreted by: eLx Colunga DO Signed by: Lex Colunga DO 06/30/21 Final result Normal [facility] Radiology Study observation (narrative) [facility] Work Phone: CBC Auto DifferentialOrdered By: Ken Jensen on 10-03-2020 Absolute Eos # 0.25 [facility] Work Phone: Absolute Immature Granulocyte <0.03 [facility] Work Phone: Absolute Lymph # 2.85 [facility] Work Phone: Absolute [place] # 0.54 [facility] Work Phone: Basophils (Bld) [#/Vol] 0.04 10*3/uL [facility] Work Phone: Basophils/100 WBC (Bld) 0 % 0 - 2 % M [employer] Phone: Differential Type NOT REPORTED [employer] Phone: Eosinophils/100 WBC (Bld) 3 % 1 - 4 % [employer] Phone: Hematocrit (Bld) [Volume fraction] 43.4 % 36.3 - 47.1 % [employer] Phone: Hemoglobin.gastrointest inal spec 1 Ql (Stl) 14.2 g/dL 11.9 - 15.1 g/dL [employer] Phone: Immature granulocytes/100 WBC (Bld) 0 % 0 [employer] Phone: Lymphocytes/100 WBC (Bld) 32 % 24 - 43 % [employer] Phone: MCH (RBC) [Entitic mass] 28.8 pg 25.2 - 33.5 pg [employer] Phone: MCHC (RBC) [Mass/Vol] 32.7 g/dL 28.4 - 34.8 g/dL [employer] Phone: MCV (RBC) [Entitic vol] 88.0 fL 82.6 - 102.9 fL [employer] Phone: Monocytes/100 WBC (Bld) 6 % 3 - 12 % M [employer] Phone: NRBC Automated 0.0 0.0 per 100 WBC [employer] Phone: Platelet distribution width (Bld) [Ratio] 12.0 % 11.8 - 14.4 % [employer] Phone: Platelet Estimate NOT REPORTED [employer] Phone: Platelet mean volume (Bld) [Entitic vol] 9.2 fL 8.1 - 13.5 fL [employer] Phone: Platelets (Bld) [#/Vol] 280 10*3/uL [employer] Phone: RBC (Bld) [#/Vol] 4.93 10*6/uL 3.95 - 5.1 1 m/uL [employer] Work Phone: RBC (Bld) [#/Vol] NOT REPORTED [employer] Phone: Segmented neutrophils/100 WBC (Bld) 59 % 36 - 65 % [employer] Work Phone: Segs Absolute 5.20 [employer] Work Phone: WBC (Bld) [#/Vol] 8.9 10*3/uL [employer] Work Phone: WBC (Bld) [#/Vol] NOT REPORTED [employer] Phone: [employer] Work Phone: CT ABDOMEN PELVIS W IV CONTR AST Additional Contrast? NoneOrdered By: Ken Jensen on 10-03-2020 Hepatic steatosis. No acute process or significant abnormality in the abdomen or pelvis to explain the patient's current symptoms. [employer] Phone: EXAMINATION: CT OF THE ABDOMEN AND PELVIS WITH CONTRAST 10/03/2020 2:53 pm TECHNIQUE: CT of the abdomen and pelvis was performed with the administration of intravenous contrast. Multiplanar reformatted images are provided for review. Dose modulation, iterative reconstruction, and/or weight based adjustment of the mA/kV was utilized to reduce the radiation dose to as low as reasonably achievable. COMPARISON: March 15, 2020. HISTORY: ORDERING SYSTEM PROVIDED HISTORY: abd pain n/v TECHNOLOGIST PROVIDED HISTORY: abd pain n/v Decision Support Exception - unselect if not a suspected or confirmed emergency medical condition->Emergenc y Medical Condition (MA) FINDINGS: Lower Chest: No significant abnormality at the lung bases. Organs: Hepatic steatosis is present. No focal liver lesion. No calcified gallstones or biliary ductal dilatation. The spleen is normal in size without focal lesion. The pancreas and the adrenal glands are unremarkable. The kidneys enhance symmetrically without collecting system dilatation. No focal renal lesion. GI/Bowel: The appendix is normal. No bowel obstruction. Pelvis: The urinary bladder, uterus and adnexa are within normal limits. Peritoneum/Retroper itoneum: No abdominal lymphadenopathy or ascites. Bones/Soft Tissues: Large fat containing umbilical hernia is redemonstrated. No significant osseous abnormality. [employer] Phone: Cesar, [employer] Incoming Radiant Results From [employer] - 10/03/2020 4:18 PM EDT EXAMINATION: CT OF THE ABDOMEN AND PELVIS WITH CONTRAST 10/03/2020 2:53 pm TECHNIQUE: CT of the abdomen and pelvis was performed with the administration of intravenous contrast. Multiplanar reformatted images are provided for review. Dose modulation, iterative reconstruction, and/or weight based adjustment of the mA/kV was utilized to reduce the radiation dose to as low as reasonably achievable. COMPARISON: March 15, 2020. HISTORY: ORDERING SYSTEM PROVIDED HISTORY: abd pain n/v TECHNOLOGIST PROVIDED HISTORY: abd pain n/v Decision Support Exception - unselect if not a suspected or confirmed emergency medical condition->Emergenc y Medical Condition (MA) FINDINGS: Lower Chest: No significant abnormality at the lung bases. Organs: Hepatic steatosis is present. No focal liver lesion. No calcified gallstones or biliary ductal dilatation. The spleen is normal in size without focal lesion. The pancreas and the adrenal glands are unremarkable. The kidneys enhance symmetrically without collecting system dilatation. No focal renal lesion. GI/Bowel: The appendix is normal. No bowel obstruction. Pelvis: The urinary bladder, uterus and adnexa are within normal limits. Peritoneum/Retroper itoneum: No abdominal lymphadenopathy or ascites. Bones/Soft Tissues: Large fat containing umbilical hernia is redemonstrated. No significant osseous abnormality. IMPRESSION: Hepatic steatosis. No acute process or significant abnormality in the abdomen or pelvis to explain the patient's current symptoms. [employer] Phone: [employer] Phone: Comprehensive Metabolic Pane l w/ Reflex to MGOrdered By: Ken Jensen on 10-03-2020 Albumin [Mass/Vol] 4.5 g/dL 3.5 - 5.2 g/dL [employer] Phone: Albumin/Globulin [Mass ratio] 1.4 {ratio} [employer] Phone: ALP (Bld) [Catalytic activity/Vol] 59 U/L 35 - 104 U/L [employer] Phone: ALT [Catalytic activity/Vol] 24 U/L 5 - 33 U/L [employer] Phone: Anion gap [Moles/Vol] 13 mmol/L 9 - 17 mmol/L [employer] Phone: AST [Catalytic activity/Vol] 21 U/L <32 [employer] Phone: Bilirubin [Mass/Vol] 0.41 mg/dL 0.3 - 1 .2 mg/dL [employer] Phone: Calcium [Mass/Vol] 9.2 mg/dL 8.6 - 10. 4 mg/dL [employer] Phone: Chloride [Moles/Vol] 105 mmol/L 98 - 10 7 mmol/L [employer] Phone: CO2 [Moles/Vol] 23 mmol/L 20 - 31 mmol/L [employer] Phone: Creatinine [Mass/Vol] 0.69 mg/dL 0.50 - 0.90 mg/dL [employer] Phone: Free PSA/Total PSA [Mass fraction] 7.7 g/dL 6.4 - 8.3 g/dL [employer] Phone: GFR >60 >60 mL/min [employer] Phone: GFR Non- >60 >60 mL/min [employer] Phone: Glucose [Mass/Vol] 109 mg/dL High 70 - 99 mg/dL [facility] [place] Phone: Interpretation and review of laboratory results Abnormal [facility] Phone: Potassium [Moles/Vol] 4.6 mmol/L 3.7 - 5.3 mmol/L [employer] Phone: Sodium [Moles/Vol] 141 mmol/L 135 - 144 mmol/L [employer] Phone: Urea nitrogen (BldV) [Mass/Vol] 16 mg/dL 6 - 20 mg/dL [employer] Phone: Urea nitrogen/Creatinine (Bld) [Mass ratio] 23 High [employer] Phone: HCG Qualitative, SerumOrdere d By: Ken Jensen on 10-03-2020 hCG Qual Negative NEGATIVE [employer] Phone: Comment on above: Specimens with hCG l evels near the threshold of the test (25 mIU/mL) may give a negative or indeterminate result. In such cases, another test should be performed with a new specimen in 48-72 hours. If early is suspected clinically in this setting, correlation with quantitative serum b-hCG level is suggested. [facility] has confirmed the use of plasma for this test. This has not been cleared or approved by the U.S. Food and Drug Administration. The FDA has determined that such clearance is not necessary. [employer] Phone: Laboratory - Chemistry and C hemistry - challengeOrdered By: Ken Jensen on 10-03-2020 GFR/1.73 sq M.predicted MDRD (S/P/Bld) [Vol rate/Area] [employer] Phone: Comment on above: Average GFR for 30-3 9 years old: 107 mL/min/1.73sq m Chronic Kidney Disease: <60 mL/min/1.73sq m Kidney failure: <15 mL/min/1.73sq m eGFR calculated using average adult body mass. Additional eGFR calculator available at: http://www.[employer]tex/multiple_crcl_2012.htm Stage 1: Some kidney damage normal GFR Stage 2: Mild kidney damage GFR 60-89 Stage 3: Moderate kidney damage GFR 30-59 Stage 4: Severe kidney damage GFR 15-29 Stage 5: Severe kidney damage GFR <15 ESRD - chronic treatment by dialysis or transplant LipaseOrdered By: Vinod on 10-03-2020 Lipase [Catalytic activity/Vol] 33 U/L 13 - 60 U/L [employer] Work Phone: Microscopic UrinalysisOrdere d By: Ken Jensen on 10-03-2020 - [facility] Work Phone: Amorphous, UA NOT REPORTED None [facility] Work Phone: Bacteria, UA 1+ Abnormal None [facility] Work Phone: Casts UA NOT REPORTED /LPF [facility] Work Phone: Crystals, UA NOT REPORTED None /HPF [facility] Work Phone: Epithelial Cells UA 5 TO 10 [facility] Work Phone: Interpretation and review of laboratory results Abnormal [facility] Work Phone: Mucus, UA 1+ Abnormal None [facility] Work Phone: Other Observations UA NOT REPORTED NOT REQ. [facility] Work Phone: RBC, UA 0 TO 2 [facility] Work Phone: Renal Epithelial, UA NOT REPORTED 0 /HPF [facility] Work Phone: Trichomonas, UA NOT REPORTED None [facility] Work Phone: WBC, UA 5 TO 10 [facility] Work Phone: Yeast, UA NOT REPORTED None [facility] Work Phone: [facility] Work Phone: No Panel InformationOrdered By: Ken Jensen on 10-03-2020 [employer] Work Phone: Urinalysis Reflex to Culture Ordered By: Ken Jensen on 10-03-2020 Bilirubin Urine Negative NEGATIVE [facility] Work Phone: Color, UA YELLOW YELLOW [facility] Work Phone: Glucose, Ur Negative NEGATIVE [facility] [employer] Work Phone: Interpretation and review of laboratory results Abnormal [facility] [employer] Work Phone: Ketones Ql (U) Negative NEGATIVE [facility] Work Phone: Leukocyte esterase Test strip Ql (U) Negative NEGATIVE [facility] Work Phone: Nitrite, Urine Negative NEGATIVE [facility] [employer] Work Phone: pH, UA 6.5 [facility] Work Phone: Protein, UA Negative NEGATIVE [facility] Work Phone: Specific Kiana, UA 1.020 [facility] Work Phone: Turbidity UA CLEAR CLEAR [facility] [employer] Work Phone: Urinalysis Comments NOT REPORTED [facility] Work Phone: Urine Hgb TRACE Abnormal NEGATIVE [facility] [employer] Work Phone: Urobilinogen, Urine Normal Normal [facility] [employer] Work Phone: [facility] Work Phone: Amylaseon 03-15-2020 Amylase [Catalytic activity/Vol] 56 U/L 28 - 100 U/L [place] CBC Auto Differentialon 02-16 Basophils (Bld) [#/Vol] 0.06 10*3/uL [place] Basophils/100 WBC (Bld) 1 % 0 - 2 % [place] Differential Type NOT REPORTED [place] Eosinophils (Bld) [#/Vol] 0.36 10*3/uL [place] Eosinophils/100 WBC (Bld) 4 % 1 - 4 % [place] Erythrocyte distribution width (RBC) [Ratio] 11.5 % Low 11.8 - 14.4 % [place] Hematocrit (Bld) [Volume fraction] 44.9 % 36.3 - 47.1 % [place] Hemoglobin (Bld) [Mass/Vol] 14.3 g/dL 11.9 - 15.1 g/dL [place] Immature granulocytes (Bld) [#/Vol] 0.04 10*3/uL [place] Immature granulocytes (Bld) [#/Vol] 0 % 0 [place] Interpretation and review of laboratory results Abnormal [place] Lymphocytes (Bld) [#/Vol] 2.88 10*3/uL [place] Lymphocytes/100 WBC (Bld) 31 % 24 - 43 % [place] MCH (RBC) [Entitic mass] 28.8 pg 25.2 - 33.5 pg [place] MCHC (RBC) [Mass/Vol] 31.8 g/dL 28.4 - 34.8 g/dL [place] MCV (RBC) [Entitic vol] 90.3 fL 82.6 - 102.9 fL [place] Monocytes (Bld) [#/Vol] 0.51 10*3/uL [place] Monocytes/100 WBC (Bld) 6 % 3 - 12 % [place] Platelet mean volume (Bld) [Entitic vol] 9.0 fL 8.1 - 13.5 fL [place] Platelets (Bld) [#/Vol] 357 10*3/uL [place] Platelets (Bld) [#/Vol] NOT REPORTED [place] RBC (Bld) [#/Vol] 4.97 10*6/uL 3.95 - 5.1 1 m/uL [place] RBC morphology finding Nom (Bld) NOT REPORTED [place] Segmented neutrophils/100 WBC (Bld) 58 % 36 - 65 % [place] Segs Absolute 5.41 [place] WBC (Bld) [#/Vol] 0.0 10*3/uL 0.0 per 10 0 WBC [place] WBC (Bld) [#/Vol] 9.3 10*3/uL [place] WBC Morphology NOT REPORTED [place] Comprehensive Metabolic Pane l w/ Reflex to MGon 03-15-2020 Albumin [Mass/Vol] 4.4 g/dL 3.5 - 5.2 g/dL [place] Albumin/Globulin [Mass ratio] 1.3 {ratio} [place] ALP [Catalytic activity/Vol] 61 U/L 35 - 104 U/L [place] ALT [Catalytic activity/Vol] 18 U/L 5 - 33 U/L [place] Anion gap [Moles/Vol] 9 mmol/L 9 - 17 mmol/L [place] AST [Catalytic activity/Vol] 16 U/L <32 [place] Bilirubin Ql (U) 0.40 mg/dL 0.3 - 1.2 mg/dL [place] Bun/Cre Ratio 19 [place] Calcium [Mass/Vol] 9.4 mg/dL 8.6 - 10. 4 mg/dL [place] Chloride [Moles/Vol] 104 mmol/L 98 - 10 7 mmol/L [place] CO2 [Moles/Vol] 28 mmol/L 20 - 31 mmol/L [place] Creatinine [Mass/Vol] 0.63 mg/dL 0.5 - 0.9 mg/dL [place] GFR >60 >60 mL/min [place] GFR Non- >60 >60 mL/min [place] Glucose [Mass/Vol] 112 mg/dL High 70 - 99 mg/dL [place] Interpretation and review of laboratory results Abnormal [place] Potassium [Moles/Vol] 3.7 mmol/L 3.7 - 5.3 mmol/L [place] Protein [Mass/Vol] 7.7 g/dL 6.4 - 8.3 g/dL [place] Sodium [Moles/Vol] 141 mmol/L 135 - 144 mmol/L [place] Urea nitrogen [Mass/Vol] 12 mg/dL 6 - 20 mg/dL [place] Lipaseon 03-15-2020 Lipase [Catalytic activity/Vol] 48 U/L 13 - 60 U/L [place] Metabolic Panelon 03-15-2020 GFR/1.73 sq M predicted among non-blacks MDRD (S/P/Bld) [Vol rate/Area] [place] Comment on above: Stage 1: Some kidney damage normal GFR Stage 2: Mild kidney damage GFR 60-89 Stage 3: Moderate kidney damage GFR 30-59 Stage 4: Severe kidney damage GFR 15-29 Stage 5: Severe kidney damage GFR <15 ESRD - chronic treatment by dialysis or transplant Average GFR for 30-3 9 years old: 107 mL/min/1.73sq m Chronic Kidney Disease: <60 mL/min/1.73sq m Kidney failure: <15 mL/min/1.73sq m eGFR calculated using average adult body mass. Additional eGFR calculator available at: http://www.Oxtex/multiple_crcl_2012.htm Microscopic Urinalysison Amorphous, UA NOT REPORTED None [place] Bacteria, UA TRACE Abnormal None [place] Casts UA NOT REPORTED /LPF [place] Crystals, UA NOT REPORTED None /HPF [place] Epithelial Cells UA 2 TO 5 [place] Interpretation and review of laboratory results Abnormal [place] Mucus, UA NOT REPORTED None [place] Other Observations UA NOT REPORTED NOT REQ. [place] RBC (U) [#/Vol] None [place] Renal Epithelial, UA NOT REPORTED 0 /HPF [place] Trichomonas, UA NOT REPORTED None [facility] [place] WBC, UA 0 TO 2 [place] Yeast, UA NOT REPORTED None [place] - [place] , Urineon 0 Beta HCG ( test) Ql (U) Negative NEGATIVE [place] Comment on above: Specimens with hCG l evels near the threshold of the test (25 mIU/mL) may give a negative or indeterminate result. In such cases, another test should be performed with a new specimen in 48-72 hours. If early is suspected clinically in this setting, correlation with quantitative serum b-hCG level is suggested. [facility] has confirmed the use of plasma for this test. This has not been cleared or approved by the U.S. Food and Drug Administration. The FDA has determined that such clearance is not necessary. Urinalysis, reflex to micros copicon 03-15-2020 Bilirubin Urine Negative NEGATIVE [place] Color, UA YELLOW YELLOW [place] Glucose, Ur Negative NEGATIVE [place] Interpretation and review of laboratory results Abnormal [place] Ketones Ql (U) TRACE Abnormal NEGATIVE [place], [place] Leukocyte esterase Test strip Ql (U) Negative NEGATIVE [place] Nitrite, Urine Negative NEGATIVE [place] pH, UA 6.0 [place] Protein (U) [Mass/Vol] Negative NEGATIVE [place] Specific Kiana, UA 1.025 High [place] Turbidity UA CLEAR CLEAR [place] Urinalysis Comments NOT REPORTED [place] Urine Hgb Negative NEGATIVE [place] Urobilinogen, Urine Normal Normal [place] RHOGAM INJECTION ONLYon 09-15 Blood product type Nom (BPU) RHIG [place] Dispense Status TRANSFUSED [place] Transfusion Status OK TO TRANSFUSE [place] Unit Divison 0 [place] Unit Number [id number] [place] ROSETTEon 09-26-2019 Dori Negative [place] Hemoglobin and hematocrit, b loodon 09-26-2019 Hematocrit (Bld) [Volume fraction] 33.7 % Low 36.3 - 47.1 % [place] Hemoglobin (Bld) [Mass/Vol] 10.6 g/dL Low 11.9 - 15.1 g/dL [place] Interpretation and review of laboratory results Abnormal [place] DRUG SCREEN MULTI URINEon Amphetamine Screen, Ur Negative NEGATIVE [place] Barbiturate Screen, Ur Negative NEGATIVE [place] Benzodiazepine Screen, Urine Negative NEGATIVE [place] Buprenorphine Urine Negative NEGATIVE [place] Cannabinoid Scrn, Ur Negative NEGATIVE [place] Cocaine Metabolite, Urine Negative NEGATIVE [place] MDMA, Urine NOT REPORTED NEGATIVE [place] Methadone Screen, Urine Negative NEGATIVE [place], [place] Methamphetamine, Urine Negative NEGATIVE [place] Opiates, Urine Negative NEGATIVE [place], [place] Oxycodone Screen, Ur Negative NEGATIVE [place] Phencyclidine, Urine Negative NEGATIVE [place] Propoxyphene, Urine Negative NEGATIVE [place] Test Information NOT REPORTED [place] Tricyclic Antidepressants, Urine Negative NEGATIVE [facility] [place] Comment on above: Drug screen results are to be used for medical purposes only. All positive results are unconfirmed. Testing for employment or legal uses should be sent to a reference laboratory for confirmation. CBC auto differentialon 07-0 Basophils (Bld) [#/Vol] 0.03 10*3/uL [place] Basophils/100 WBC (Bld) 0 % 0 - 2 % [place] Differential Type NOT REPORTED [place] Eosinophils (Bld) [#/Vol] 0.10 10*3/uL [place] Eosinophils/100 WBC (Bld) 1 % 1 - 4 % [place] Erythrocyte distribution width (RBC) [Ratio] 13.4 % 11.8 - 14.4 % [place] Hematocrit (Bld) [Volume fraction] 36.8 % 36.3 - 47.1 % [place] Hemoglobin (Bld) [Mass/Vol] 12.1 g/dL 11.9 - 15.1 g/dL [place] Immature granulocytes (Bld) [#/Vol] 1 % High 0 [place] Immature granulocytes (Bld) [#/Vol] 0.09 10*3/uL [place] Interpretation and review of laboratory results Abnormal [place] Lymphocytes (Bld) [#/Vol] 2.49 10*3/uL [place] Lymphocytes/100 WBC (Bld) 20 % Low 24 - 43 % [place] MCH (RBC) [Entitic mass] 29.8 pg 25.2 - 33.5 pg [place] MCHC (RBC) [Mass/Vol] 32.9 g/dL 28.4 - 34.8 g/dL [place] MCV (RBC) [Entitic vol] 90.6 fL 82.6 - 102.9 fL [place] Monocytes (Bld) [#/Vol] 0.64 10*3/uL [place] Monocytes/100 WBC (Bld) 5 % 3 - 12 % [place] Platelet mean volume (Bld) [Entitic vol] 9.8 fL 8.1 - 13.5 fL [place] Platelets (Bld) [#/Vol] 257 10*3/uL [place] Platelets (Bld) [#/Vol] NOT REPORTED [place] RBC (Bld) [#/Vol] 4.06 10*6/uL 3.95 - 5.1 1 m/uL [place] RBC morphology finding Nom (Bld) NOT REPORTED [place] Segmented neutrophils/100 WBC (Bld) 73 % High 36 - 65 % [place] Segs Absolute 9.17 High [place] WBC (Bld) [#/Vol] 12.5 10*3/uL [place] WBC (Bld) [#/Vol] 0.0 10*3/uL 0.0 per 10 0 WBC [place] WBC Morphology NOT REPORTED [place] BIOPHYSICAL PROFILE WO NON STRESS TESTINGon 09-21-2019 Biophysical profile is 8 out of 8. [place] EXAMINATION: BIOPHYSICAL PROFILE WITHOUT NON-STRESS TEST 09/21/2019 TECHNIQUE: ULTRASOUND BIOPHYSICAL PROFILE WITHOUT NON-STRESS TEST COMPARISON: 06/08/2019 HISTORY: ORDERING SYSTEM PROVIDED HISTORY: Oligohydramnios, antepartum, single or unspecified fetus TECHNOLOGIST PROVIDED HISTORY: Plus DEYSI please FINDINGS: BIOPHYSICAL PROFILE: Tone: 2/2 Gross Body: 2/2 Breathin/2 Qualitative Fluid: 2/2 Biophysical Profile Score: 8/8 OTHER FINDINGS: DEYSI is 14.9 cm with the largest pocket measuring 4.8 cm. Heart rate is 134 beats per minute. Placenta is anterior. Fetus is vertex in position. [place] Cesar, [employer] Incoming Radiant Results From [employer] - 09/21/2019 9:42 PM EDT EXAMINATION: BIOPHYSICAL PROFILE WITHOUT NON-STRESS TEST 09/21/2019 TECHNIQUE: ULTRASOUND BIOPHYSICAL PROFILE WITHOUT NON-STRESS TEST COMPARISON: 06/08/2019 HISTORY: ORDERING SYSTEM PROVIDED HISTORY: Oligohydramnios, antepartum, single or unspecified fetus TECHNOLOGIST PROVIDED HISTORY: Plus DEYSI please FINDINGS: BIOPHYSICAL PROFILE: Tone: 2/2 Gross Body: 2/2 Breathin/2 Qualitative Fluid: 2/2 Biophysical Profile Score: 8/8 OTHER FINDINGS: DEYSI is 14.9 cm with the largest pocket measuring 4.8 cm. Heart rate is 134 beats per minute. Placenta is anterior. Fetus is vertex in position. IMPRESSION: Biophysical profile is 8 out of 8. [place] Protein, urine, randomon Protein (U) [Mass/Vol] 6 mg/dL [place] Comment on above: No normal range esta blished. Urinalysison 09-18-2019 Bilirubin Urine Negative NEGATIVE [place] Color, UA YELLOW YELLOW [place] Glucose, Ur Negative NEGATIVE [place] Ketones Ql (U) Negative NEGATIVE [place] Leukocyte esterase Test strip Ql (U) Negative NEGATIVE [place] Nitrite, Urine Negative NEGATIVE [place] pH, UA 7.0 [place] Protein (U) [Mass/Vol] Negative NEGATIVE [place] Specific Kiana, UA 1.015 [place], [place] Turbidity UA CLEAR CLEAR [place] Urinalysis Comments NOT REPORTED [place] Urine Hgb Negative NEGATIVE [facility] [place] Urobilinogen, Urine Normal Normal [facility] [place] Urinalysison 09-17-2019 Bilirubin Urine Negative NEGATIVE [facility] [place] Color, UA YELLOW YELLOW [facility] [place] Glucose, Ur Negative NEGATIVE [facility] [place] Ketones Ql (U) Negative NEGATIVE [facility] [place] Leukocyte esterase Test strip Ql (U) Negative NEGATIVE [facility] [place] Nitrite, Urine Negative NEGATIVE [facility] [place] pH, UA 7.0 [facility] [place] Protein (U) [Mass/Vol] Negative NEGATIVE [facility] [place] Specific Kiana, UA 1.010 [facility] [place] Turbidity UA CLEAR CLEAR [facility] [place] Urinalysis Comments NOT REPORTED [facility] Urine Hgb Negative NEGATIVE [facility] [place] Urobilinogen, Urine Normal Normal [facility] GBS, External Resulton 09-07 GBS, External Result Negative [facility] Comment on above: verified by sc/RK Urinalysison 08-06-2019 Bilirubin Urine Negative NEGATIVE [facility] [place] Color, UA YELLOW YELLOW [facility] [place] Glucose, Ur Negative NEGATIVE [facility] [place] Ketones Ql (U) Negative NEGATIVE [facility] [place] Leukocyte esterase Test strip Ql (U) Negative NEGATIVE [facility] [place] Nitrite, Urine Negative NEGATIVE [facility] [place] pH, UA 6.5 [facility] Protein (U) [Mass/Vol] Negative NEGATIVE [facility] [place] Specific Kiana, UA 1.020 [facility] [place] Turbidity UA CLEAR CLEAR [facility] [place] Urinalysis Comments NOT REPORTED [facility] Urine Hgb Negative NEGATIVE [facility] [place] Urobilinogen, Urine Normal Normal [facility] [place] Urinalysis with microscopico n 07-03-2019 Amorphous, UA NOT REPORTED None [facility] [place] Bacteria, UA NOT REPORTED None [facility] [place] Bilirubin Urine SMALL Abnormal NEGATIVE [facility] [place] Casts UA NOT REPORTED /LPF [facility] [place] Color, UA YELLOW YELLOW [place] Crystals, UA CALCIUM OXALATE Abnormal None /HPF [place] Crystals, UA 0 TO 2 Abnormal None /HPF [place] Epithelial Cells UA 2 TO 5 [place] Glucose, Ur Negative NEGATIVE [place] Interpretation and review of laboratory results Abnormal [place] Ketones Ql (U) TRACE Abnormal NEGATIVE [place] Leukocyte esterase Test strip Ql (U) Negative NEGATIVE [place] Mucus, UA NOT REPORTED None [place], [place] Nitrite, Urine Negative NEGATIVE [place] Other Observations UA NOT REPORTED NOT REQ. [place] pH, UA 6.0 [place] Protein (U) [Mass/Vol] Negative NEGATIVE [place] RBC (U) [#/Vol] 0 TO 2 [place] Renal Epithelial, UA NOT REPORTED 0 /HPF [place] Specific Kiana, UA >1.030 High [place], [place] Trichomonas, UA NOT REPORTED None [place] Turbidity UA CLEAR CLEAR [place] Urinalysis Comments NOT REPORTED [place] Urine Hgb Negative NEGATIVE [place] Urobilinogen, Urine Normal Normal [place] WBC, UA 0 TO 2 [place] Yeast, UA NOT REPORTED None [place] Urinalysison 06-18-2019 Bilirubin Urine Negative NEGATIVE [place] Color, UA YELLOW YELLOW [place] Glucose, Ur Negative NEGATIVE [place] Ketones Ql (U) Negative NEGATIVE [place], [place] Leukocyte esterase Test strip Ql (U) Negative NEGATIVE [place] Nitrite, Urine Negative NEGATIVE [place] pH, UA 7.0 [place] Protein (U) [Mass/Vol] Negative NEGATIVE [place] Specific Kiana, UA 1.015 [place], [place] Turbidity UA CLEAR CLEAR [place], [place] Urinalysis Comments NOT REPORTED [place] Urine Hgb Negative NEGATIVE [place] Urobilinogen, Urine Normal Normal [place] CBCon 06-08-2019 Erythrocyte distribution width (RBC) [Ratio] 12.2 % 11.8 - 14.4 % [place] Hematocrit (Bld) [Volume fraction] 35.8 % Low 36.3 - 47.1 % [place] Hemoglobin (Bld) [Mass/Vol] 11.3 g/dL Low 11.9 - 15.1 g/dL [place] Interpretation and review of laboratory results Abnormal [place] MCH (RBC) [Entitic mass] 30.1 pg 25.2 - 33.5 pg [place] MCHC (RBC) [Mass/Vol] 31.6 g/dL 28.4 - 34.8 g/dL [place] MCV (RBC) [Entitic vol] 95.2 fL 82.6 - 102.9 fL [place] Platelet mean volume (Bld) [Entitic vol] 10.0 fL 8.1 - 13.5 fL [place] Platelets (Bld) [#/Vol] 247 10*3/uL [place] RBC (Bld) [#/Vol] 3.76 10*6/uL Low 3.95 - 5.1 1 m/uL [place] WBC (Bld) [#/Vol] 10.8 10*3/uL [place] WBC (Bld) [#/Vol] 0.0 10*3/uL 0.0 per 10 0 WBC [place] Glucose tolerance, 1 houron 06-08-2019 GLU ADMN 50 [place] Glucose tolerance screen 50g 128 mg/dL 70 - 135 mg/dL [place] US OB 14 PLUS WEEKS SINGLE O R FIRST GESTATIONon 05-04-2019 A single live intrauterine with estimated gestational age of 19 week 3 day by ultrasound. The estimated weight is 310 g. RECOMMENDATIONS: Incomplete anatomic evaluation as above. Recommend follow-up repeat imaging in 2 weeks. [facility] EXAMINATION: TRANSABDOMINAL SECOND/THIRD TRIMESTER OBSTETRIC PELVIC ULTRASOUND WITH COLOR DOPPLER FLOW 05/04/2019 4:07 pm TECHNIQUE: TRANSABDOMINAL PELVIC ULTRASOUND WITH COLOR DOPPLER FLOW COMPARISON: February 19, 2019 HISTORY: ORDERING SYSTEM PROVIDED HISTORY: screening for malformation using ultrasonics FINDINGS: GENERAL OBSERVATIONS: : Single CARDIAC ACTIVITY: Yes HEART RATE: 148 BODY & LIMB MOVEMENTS: Yes POSITION: Variable PLACENTA LOCATION: Anterior DEYSI: 9 cm ANATOMY: CEREBRAL VENTRICLES: Normal CHOROID PLEXUS: Normal CEREBELLI: Normal POSTERIOR FOSSA: Normal UPPER LIP/FACE: Normal 4-CHAMBER HEART: Not well visualized due to positioning OUTFLOW TRACTS: Normal STOMACH: Normal KIDNEYS: Normal CORD INSERTION: Normal 3-VESSEL CORD: Normal URINARY BLADDER: Normal SPINE: Not well visualized due to positioning 4 LIMBS: Normal ESTIMATED AGE: BY LMP: 19 week 2 day CURRENT US: 19 weeks 3 days ESTIMATED WEIGHT: 310 grams, 72%tile MEASUREMENTS: BPD: 4.2 cm, 22%tile HEAD CIRCUMFERENCE: 16.7 cm, 48%tile ABD. CIRCUMFERENCE: 15.1 cm, 79%tile FEMUR LENGTH: 3 cm, 40%tile CERVICAL LENGTH: Not well visualized [facility], [place] Cesar, M[facility] Incoming Radiant Results From [employer] - 05/04/2019 9:53 PM EST EXAMINATION: TRANSABDOMINAL SECOND/THIRD TRIMESTER OBSTETRIC PELVIC ULTRASOUND WITH COLOR DOPPLER FLOW 05/04/2019 4:07 pm TECHNIQUE: TRANSABDOMINAL PELVIC ULTRASOUND WITH COLOR DOPPLER FLOW COMPARISON: February 19, 2019 HISTORY: ORDERING SYSTEM PROVIDED HISTORY: screening for malformation using ultrasonics FINDINGS: GENERAL OBSERVATIONS: : Single CARDIAC ACTIVITY: Yes HEART RATE: 148 BODY & LIMB MOVEMENTS: Yes POSITION: Variable PLACENTA LOCATION: Anterior DEYSI: 9 cm ANATOMY: CEREBRAL VENTRICLES: Normal CHOROID PLEXUS: Normal CEREBELLI: Normal POSTERIOR FOSSA: Normal UPPER LIP/FACE: Normal 4-CHAMBER HEART: Not well visualized due to positioning OUTFLOW TRACTS: Normal STOMACH: Normal KIDNEYS: Normal CORD INSERTION: Normal 3-VESSEL CORD: Normal URINARY BLADDER: Normal SPINE: Not well visualized due to positioning 4 LIMBS: Normal ESTIMATED AGE: BY LMP: 19 week 2 day CURRENT US: 19 weeks 3 days ESTIMATED WEIGHT: 310 grams, 72%tile MEASUREMENTS: BPD: 4.2 cm, 22%tile HEAD CIRCUMFERENCE: 16.7 cm, 48%tile ABD. CIRCUMFERENCE: 15.1 cm, 79%tile FEMUR LENGTH: 3 cm, 40%tile CERVICAL LENGTH: Not well visualized IMPRESSION: A single live intrauterine with estimated gestational age of 19 week 3 day by ultrasound. The estimated weight is 310 g. RECOMMENDATIONS: Incomplete anatomic evaluation as above. Recommend follow-up repeat imaging in 2 weeks. [facility] ABDOMEN COMPLETEOrdered B y: Iker Mosquera on 04-01-2019 Unremarkable abdominal ultrasound. [employer] Phone: EXAMINATION: COMPLETE ABDOMINAL ULTRASOUND 04/01/2019 11:46 am COMPARISON: None. HISTORY: ORDERING SYSTEM PROVIDED HISTORY: Acute LUQ pain FINDINGS: LIVER: The liver demonstrates normal echogenicity without evidence of intrahepatic biliary ductal dilatation. Liver length is 19.1 cm. BILIARY SYSTEM: Gallbladder is unremarkable without evidence of pericholecystic fluid, wall thickening or stones. Negative sonographic Benito's sign. Common bile duct is within normal limits measuring 4 mm. KIDNEYS: The kidneys are unremarkable in appearance without evidence of hydronephrosis. Right renal length is 11.4 cm and left renal length is 13 cm. Dromedary hump appears to be present on the left. PANCREAS: Visualized portions of the pancreas are unremarkable. SPLEEN: The spleen is unremarkable in appearance. Spleen is within normal limits in size measuring 11.7 cm in maximal dimension. IVC: The IVC is patent. AORTA: Aorta is patent without aneurysm measuring 1.3 x 1.5 cm proximally, 1.5 x 1.6 and along the mid segment and 1.4 x 1.6 cm distally. OTHER: No evidence of ascites. Gravid uterus is identified with live pole demonstrating normal movement and heart rate of 150 beats per minute. [employer] Phone: Cesar, pn Incoming Radiant Results From [employer] - 04/01/2019 12:47 PM EST EXAMINATION: COMPLETE ABDOMINAL ULTRASOUND 04/01/2019 11:46 am COMPARISON: None. HISTORY: ORDERING SYSTEM PROVIDED HISTORY: Acute LUQ pain FINDINGS: LIVER: The liver demonstrates normal echogenicity without evidence of intrahepatic biliary ductal dilatation. Liver length is 19.1 cm. BILIARY SYSTEM: Gallbladder is unremarkable without evidence of pericholecystic fluid, wall thickening or stones. Negative sonographic Benito's sign. Common bile duct is within normal limits measuring 4 mm. KIDNEYS: The kidneys are unremarkable in appearance without evidence of hydronephrosis. Right renal length is 11.4 cm and left renal length is 13 cm. Dromedary hump appears to be present on the left. PANCREAS: Visualized portions of the pancreas are unremarkable. SPLEEN: The spleen is unremarkable in appearance. Spleen is within normal limits in size measuring 11.7 cm in maximal dimension. IVC: The IVC is patent. AORTA: Aorta is patent without aneurysm measuring 1.3 x 1.5 cm proximally, 1.5 x 1.6 and along the mid segment and 1.4 x 1.6 cm distally. OTHER: No evidence of ascites. Gravid uterus is identified with live pole demonstrating normal movement and heart rate of 150 beats per minute. IMPRESSION: Unremarkable abdominal ultrasound. [employer] Work Phone: C. Trachomatis, External Res [facility] 03-31-2019 C. Trachomatis, External Result Negative [facility] [place] [place] Comment on above: verified SC/RK N. Gonorrhoeae, External Res [facility] 03-31-2019 N. Gonorrhoeae, External Result Negative [facility] [place] [place] Comment on above: verified SC/RK CBC Auto DifferentialOrdered By: Jose Thompson on 03-04-2019 Absolute Eos # 0.24 [facility] Work Phone: Absolute Immature Granulocyte 0.05 [employer] Work Phone: Absolute Lymph # 2.74 [facility] Work Phone: Absolute [place] # 0.72 [facility] Work Phone: Basophils (Bld) [#/Vol] 10*3/uL M [employer] Work Phone: Basophils/100 WBC (Bld) 0 % 0 - 2 % M [employer] Work Phone: Differential Type NOT REPORTED [employer] Phone: Eosinophils/100 WBC (Bld) 2 % 1 - 4 % [employer] Work Phone: Erythrocyte distribution width (RBC) [Ratio] 12.8 % 11.8 - 14.4 % [employer] Phone: Hematocrit (Bld) [Volume fraction] 37.9 % 36.3 - 47.1 % [employer] Phone: Hemoglobin (Bld) [Mass/Vol] 12.3 g/dL 11.9 - 15.1 g/dL [employer] Phone: Immature granulocytes/100 WBC (Bld) 1 % High 0 [employer] Phone: Interpretation and review of laboratory results Abnormal [employer] Phone: Lymphocytes/100 WBC (Bld) 25 % 24 - 43 % [employer] Phone: MCH (RBC) [Entitic mass] 29.4 pg 25.2 - 33.5 pg [employer] Phone: MCHC (RBC) [Mass/Vol] 32.5 g/dL 28.4 - 34.8 g/dL [employer] Phone: MCV (RBC) [Entitic vol] 90.7 fL 82.6 - 102.9 fL [employer] Phone: Monocytes/100 WBC (Bld) 7 % 3 - 12 % M [employer] Phone: NRBC Automated 0.0 0.0 per 100 WBC [employer] Phone: Platelet Estimate NOT REPORTED [employer] Phone: Platelet mean volume (Bld) [Entitic vol] 9.5 fL 8.1 - 13.5 fL [employer] Phone: Platelets (Bld) [#/Vol] 294 10*3/uL [employer] Phone: RBC (Bld) [#/Vol] 4.18 10*6/uL 3.95 - 5.1 1 m/uL [employer] Phone: RBC morphology finding Nom (Bld) NOT REPORTED [employer] Phone: Segmented neutrophils/100 WBC (Bld) 65 % 36 - 65 % [employer] Phone: Segs Absolute 7.10 [employer] Work Phone: WBC (Bld) [#/Vol] 10.9 10*3/uL [employer] Phone: WBC Morphology NOT REPORTED [facility] Work Phone: Comprehensive Metabolic Pane l w/ Reflex to MGOrdered By: Jose Thompson on 03-04-2019 Albumin [Mass/Vol] 4.2 g/dL 3.5 - 5.2 g/dL [employer] Phone: Albumin/Globulin [Mass ratio] 1.3 {ratio} [employer] Phone: ALP [Catalytic activity/Vol] 56 U/L 35 - 104 U/L [employer] Phone: ALT [Catalytic activity/Vol] 21 U/L 5 - 33 U/L [employer] Phone: Anion gap [Moles/Vol] 7 mmol/L Low 9 - 17 mmol/L [employer] Phone: AST [Catalytic activity/Vol] 16 U/L <32 [employer] Phone: Bilirubin [Mass/Vol] 0.21 mg/dL Low 0.3 - 1 .2 mg/dL [employer] Phone: Bun/Cre Ratio 18 [employer] Work Phone: Calcium [Mass/Vol] 9.5 mg/dL 8.6 - 10. 4 mg/dL [employer] Phone: Chloride [Moles/Vol] 99 mmol/L 98 - 10 7 mmol/L [employer] Phone: CO2 [Moles/Vol] 25 mmol/L 20 - 31 mmol/L [employer] Phone: Creatinine [Mass/Vol] 0.49 mg/dL Low 0.5 - 0.9 mg/dL [employer] Phone: GFR >60 >60 mL/min [employer] Phone: GFR Comment [employer] Phone: Comment on above: Average GFR for 20-2 9 years old: 116 mL/min/1.73sq m Chronic Kidney Disease: <60 mL/min/1.73sq m Kidney failure: <15 mL/min/1.73sq m eGFR calculated using average adult body mass. Additional eGFR calculator available at: http://www.Oxtex/Zipongo_crcl_2012.htm GFR Non- >60 >60 mL/min [employer] Phone: GFR Staging [employer] Phone: Comment on above: Stage 1: Some kidney damage normal GFR Stage 2: Mild kidney damage GFR 60-89 Stage 3: Moderate kidney damage GFR 30-59 Stage 4: Severe kidney damage GFR 15-29 Stage 5: Severe kidney damage GFR <15 ESRD - chronic treatment by dialysis or transplant Glucose [Mass/Vol] 99 mg/dL 70 - 99 mg/dL [employer] Phone: Interpretation and review of laboratory results Abnormal [employer] Phone: Potassium [Moles/Vol] 3.8 mmol/L 3.7 - 5.3 mmol/L [employer] Phone: Protein [Mass/Vol] 7.5 g/dL 6.4 - 8.3 g/dL [employer] Phone: Sodium [Moles/Vol] 131 mmol/L Low 135 - 144 mmol/L [employer] Phone: Urea nitrogen [Mass/Vol] 9 mg/dL 6 - 20 mg/dL [employer] Phone: LipaseOrdered By: Jose Swartz e on 03-04-2019 Lipase [Catalytic activity/Vol] 33 U/L 13 - 60 U/L [employer] Phone: Microscopic UrinalysisOrdere d By: Jose Thompson on 03-04-2019 - [employer] Phone: Amorphous, UA 2+ Abnormal None [employer] Work Phone: Bacteria, UA NOT REPORTED None [employer] Work Phone: Casts UA NOT REPORTED /LPF [employer] Work Phone: Crystals UA NOT REPORTED None /HPF [employer] Work Phone: Epithelial Cells UA 0 TO 2 [employer] Work Phone: Interpretation and review of laboratory results Abnormal [employer] Work Phone: Mucus, UA NOT REPORTED None [employer] Work Phone: Other Observations UA NOT REPORTED NOT REQ. M [facility] Work Phone: RBC, UA 0 TO 2 [employer] Work Phone: Renal Epithelial, Urine NOT REPORTED 0 /HPF [employer] Work Phone: Trichomonas, UA NOT REPORTED None [employer] Work Phone: WBC, UA 0 TO 2 [employer] Work Phone: Yeast, UA NOT REPORTED None [employer] Work Phone: , UrineOrdered By: Jose Thompson on 03-04-2019 Beta HCG ( test) Ql (U) Positive Abnormal NEGATIVE [employer] Work Phone: Comment on above: If HCG results do not concur with clinical observations, additional testing to confirm result is recommended. This test is not labeled for use as a tumor marker. [employer] has confirmed the use of plasma for this test. This has not been cleared or approved by the U.S. Food and Drug Administration. The FDA has determined that such clearance is not necessary. Interpretation and review of laboratory results Abnormal [facility] Work Phone: Urinalysis Reflex to Culture Ordered By: Jose Thompson on 03-04-2019 Bilirubin Urine Negative NEGATIVE [facility] Work Phone: Color, UA YELLOW YELLOW [facility] Work Phone: Glucose, Ur Negative NEGATIVE [facility] Work Phone: Interpretation and review of laboratory results Abnormal [facility] Work Phone: Ketones Ql (U) Negative NEGATIVE [facility] Work Phone: Leukocyte esterase Test strip Ql (U) Negative NEGATIVE [facility] Work Phone: Nitrite, Urine Negative NEGATIVE [facility] Work Phone: pH, UA 6.5 [facility] Work Phone: Protein, UA Negative NEGATIVE [facility] Work Phone: Specific Kiana, UA 1.025 High [facility] [employer] Work Phone: Turbidity UA CLEAR CLEAR [facility] [employer] Work Phone: Urinalysis Comments NOT REPORTED [facility] [employer] Work Phone: Urine Hgb TRACE Abnormal NEGATIVE [facility] [employer] Work Phone: Urobilinogen, Urine Normal Normal [facility] Work Phone: ABO, External Resulton 02-10 ABO, External Result [place] Comment on above: verified SC/RK HIV, External Resulton 02-10 HIV, External Result non reactive [place], [place] Comment on above: verified SC/RK Hepatitis B, External Result on 02-10-2019 Hep B, External Result Negative [place] Comment on above: verified SC/RK RPR, External Labon 02-11-20 19 RPR, External Result non-reactive [place] Comment on above: verified SC/RK Rh Factor, External Resulton 02-10-2019 Rh Factor, External Result Negative [place] Comment on above: verified SC/RK Rubella Titer, External Resu lton 02-10-2019 Rubella Titer, External Result immune [place] Comment on above: verified SC/RK HCG, Quantitative, on 01-28-2019 hCG Quant 5810 High <5 IU/L [place] Comment on above: Non-preg premeno <=5 Postmeno <=8 Male <=3 If HCG results do not concur with clinical observations, additional testing to confirm results is recommended. Elevated results not associated with may be found in patients with other diseases such as tumors of the germ cells (testis, ovaries, etc.), bladder, pancreas, stomach, lungs, and liver. Interpretation and review of laboratory results Abnormal [place] Microscopic Urinalysison Amorphous, UA NOT REPORTED None [place] Bacteria, UA TRACE Abnormal None [place] Casts UA NOT REPORTED /LPF [place] Crystals UA NOT REPORTED None /HPF [place] Epithelial Cells UA 5 TO 10 [place] Interpretation and review of laboratory results Abnormal [place] Mucus, UA NOT REPORTED None [place] Other Observations UA NOT REPORTED NOT REQ. M [place] RBC (U) [#/Vol] 0 TO 2 [place] Renal Epithelial, Urine NOT REPORTED 0 /HPF [place] Trichomonas, UA NOT REPORTED None [facility] [place] WBC, UA 0 TO 2 [place] Yeast, UA NOT REPORTED None [place] , Urineon 9 Beta HCG ( test) Ql (U) Positive Abnormal NEGATIVE [place] Comment on above: If HCG results do not concur with clinical observations, additional testing to confirm result is recommended. This test is not labeled for use as a tumor marker. [facility] has confirmed the use of plasma for this test. This has not been cleared or approved by the U.S. Food and Drug Administration. The FDA has determined that such clearance is not necessary. Interpretation and review of laboratory results Abnormal [place] Urinalysis Reflex to Culture on 01-27-2019 Bilirubin Urine Negative NEGATIVE [facility] [place] Color, UA YELLOW YELLOW [place] Glucose, Ur Negative NEGATIVE [place] Ketones Ql (U) Negative NEGATIVE [place] Leukocyte esterase Test strip Ql (U) Negative NEGATIVE [place] Nitrite, Urine Negative NEGATIVE [place] pH, UA 7.0 [place] Protein (U) [Mass/Vol] Negative NEGATIVE [place] Specific Kiana, UA 1.015 [place] Turbidity UA CLEAR CLEAR [place] Urinalysis Comments NOT REPORTED [place] Urine Hgb Negative NEGATIVE [place] Urobilinogen, Urine Normal Normal [place] HCG Qualitative, Serumon hCG Qual Positive Abnormal NEGATIVE [place] Comment on above: If HCG results do not concur with clinical observations, additional testing to confirm result is recommended. This test is not labeled for use as a tumor marker. [facility] [email or web address] has confirmed the use of plasma for this test. This has not been cleared or approved by the U.S. Food and Drug Administration. The FDA has determined that such clearance is not necessary. Interpretation and review of laboratory results Abnormal [place] CBC Auto Differentialon 11-17 Basophils (Bld) [#/Vol] 0.05 10*3/uL [place] Basophils/100 WBC (Bld) 1 % 0 - 2 % [place] Differential Type NOT REPORTED [place] Eosinophils (Bld) [#/Vol] 0.25 10*3/uL [place] Eosinophils/100 WBC (Bld) 3 % 1 - 4 % [place] Erythrocyte distribution width (RBC) [Ratio] 13.2 % 11.8 - 14.4 % [place] Hematocrit (Bld) [Volume fraction] 39.6 % 36.3 - 47.1 % [place] Hemoglobin (Bld) [Mass/Vol] 12.4 g/dL 11.9 - 15.1 g/dL [place] Immature granulocytes (Bld) [#/Vol] 10*3/uL [place] Immature granulocytes (Bld) [#/Vol] 0 % 0 [place] Lymphocytes (Bld) [#/Vol] 3.41 10*3/uL [place] Lymphocytes/100 WBC (Bld) 35 % 24 - 43 % [place] MCH (RBC) [Entitic mass] 27.9 pg 25.2 - 33.5 pg [place] MCHC (RBC) [Mass/Vol] 31.3 g/dL 28.4 - 34.8 g/dL [place] MCV (RBC) [Entitic vol] 89.2 fL 82.6 - 102.9 fL [place] Monocytes (Bld) [#/Vol] 0.72 10*3/uL [place] Monocytes/100 WBC (Bld) 7 % 3 - 12 % [place] Platelet mean volume (Bld) [Entitic vol] 9.7 fL 8.1 - 13.5 fL [place] Platelets (Bld) [#/Vol] NOT REPORTED [place] Platelets (Bld) [#/Vol] 254 10*3/uL [place] RBC (Bld) [#/Vol] 4.44 10*6/uL 3.95 - 5.1 1 m/uL [place] RBC morphology finding Nom (Bld) NOT REPORTED [place] Segmented neutrophils/100 WBC (Bld) 54 % 36 - 65 % [place] Segs Absolute 5.32 [place] WBC (Bld) [#/Vol] 9.8 10*3/uL [place] WBC (Bld) [#/Vol] 0.0 10*3/uL 0.0 per 10 0 WBC [place] WBC Morphology NOT REPORTED [place] Comprehensive Metabolic Pane l w/ Reflex to MGon 12-14-2018 Albumin [Mass/Vol] 3.9 g/dL 3.5 - 5.2 g/dL [place] Albumin/Globulin [Mass ratio] 1.4 {ratio} [place] ALP [Catalytic activity/Vol] 52 U/L 35 - 104 U/L [place] ALT [Catalytic activity/Vol] 12 U/L 5 - 33 U/L [place] Anion gap [Moles/Vol] 13 mmol/L 9 - 17 mmol/L [place] AST [Catalytic activity/Vol] 11 U/L <32 [place] Bilirubin Ql (U) <0.10 Low 0.3 - 1.2 mg/dL [place] Bun/Cre Ratio 25 High [place] Calcium [Mass/Vol] 8.5 mg/dL Low 8.6 - 10. 4 mg/dL [place] Chloride [Moles/Vol] 107 mmol/L 98 - 10 7 mmol/L [place] CO2 [Moles/Vol] 22 mmol/L 20 - 31 mmol/L [place] Creatinine [Mass/Vol] 0.63 mg/dL 0.5 - 0.9 mg/dL [place] GFR >60 >60 mL/min [place] GFR Non- >60 >60 mL/min [place] Glucose [Mass/Vol] 97 mg/dL 70 - 99 mg/dL [place] Interpretation and review of laboratory results Abnormal [place] Potassium [Moles/Vol] 4.2 mmol/L 3.7 - 5.3 mmol/L [place] Protein [Mass/Vol] 6.6 g/dL 6.4 - 8.3 g/dL [place] Sodium [Moles/Vol] 142 mmol/L 135 - 144 mmol/L [place] Urea nitrogen [Mass/Vol] 16 mg/dL 6 - 20 mg/dL [place] Lactic Acidon 12-14-2018 Lactate [Moles/Vol] 0.8 mmol/L 0.5 - 2. 2 mmol/L [place] Lipaseon 12-14-2018 Lipase [Catalytic activity/Vol] 47 U/L 13 - 60 U/L [place] Metabolic Panelon 12-14-2018 GFR/1.73 sq M predicted among non-blacks MDRD (S/P/Bld) [Vol rate/Area] [place] Comment on above: Average GFR for 20-2 9 years old: 116 mL/min/1.73sq m Chronic Kidney Disease: <60 mL/min/1.73sq m Kidney failure: <15 mL/min/1.73sq m eGFR calculated using average adult body mass. Additional eGFR calculator available at: http://www.Oxtex/multiple_crcl_2012.htm Stage 1: Some kidney damage normal GFR Stage 2: Mild kidney damage GFR 60-89 Stage 3: Moderate kidney damage GFR 30-59 Stage 4: Severe kidney damage GFR 15-29 Stage 5: Severe kidney damage GFR <15 ESRD - chronic treatment by dialysis or transplant Microscopic Urinalysison Amorphous, UA NOT REPORTED None [place] Bacteria, UA NOT REPORTED None [place] Casts UA NOT REPORTED /LPF [place] Crystals UA NOT REPORTED None /HPF [place] Epithelial Cells UA 0 TO 2 [place] Mucus, UA NOT REPORTED None [place] Other Observations UA NOT REPORTED NOT REQ. M [place] RBC (U) [#/Vol] 0 TO 2 [place] Renal Epithelial, Urine NOT REPORTED 0 /HPF [place] Trichomonas, UA NOT REPORTED None [place] WBC, UA 0 TO 2 [place] Yeast, UA NOT REPORTED None [place] , Urineon 9 Beta HCG ( test) Ql (U) Negative NEGATIVE [place] Comment on above: Specimens with hCG l evels near the threshold of the test (25 mIU/mL) may give a negative or indeterminate result. In such cases, another test should be performed with a new specimen in 48-72 hours. If early is suspected clinically in this setting, correlation with quantitative serum b-hCG level is suggested. [employer] has confirmed the use of plasma for this test. This has not been cleared or approved by the U.S. Food and Drug Administration. The FDA has determined that such clearance is not necessary. Urinalysis Reflex to Culture on 12-14-2018 Bilirubin Urine Negative NEGATIVE [facility] [place], [place] Color, UA YELLOW YELLOW [place] Glucose, Ur Negative NEGATIVE [facility], [place] Interpretation and review of laboratory results Abnormal [place] Ketones Ql (U) Negative NEGATIVE [place] Leukocyte esterase Test strip Ql (U) Negative NEGATIVE [facility], [place] Nitrite, Urine Negative NEGATIVE [facility], [place] pH, UA 6.0 [place] Protein (U) [Mass/Vol] Negative NEGATIVE [place] Specific Kiana, UA 1.025 [place] Turbidity UA CLEAR CLEAR [place] Urinalysis Comments NOT REPORTED [place] Urine Hgb 1+ Abnormal NEGATIVE [place] Urobilinogen, Urine Normal Normal [place] CBC W Auto Differentialon Age at specimen collection = Normal [facility] Comment on above: Performed By: #### C BC Auto Diff #### [facility] [address], [place] [id number] Abs Neut # 3.8 10 X 3/mm Normal 1.8 - 7.7 [facility] Comment on above: Performed By: #### C BC Auto Diff #### [facility] [address], [place] [id number] (254) Basophils/100 WBC (Bld) 0 % Normal 0 - 1 [facility] Comment on above: Performed By: #### C BC Auto Diff #### [facility] [address] [place] [address] Eosinophils (Bld) [#/Vol] 0.2 10 X 3/mm Normal 0.0 - 0.5 [facility] Comment on above: Performed By: #### C BC Auto Diff #### [facility] [address] [place] [address] Eosinophils/100 WBC (Bld) 3 % Normal 0 - 5 [facility] Comment on above: Performed By: #### C BC Auto Diff #### [place] [address] [place] [address] Erythrocyte distribution width (RBC) [Ratio] 14.5 % Normal 11.5 - 14.5 [facility] Comment on above: Performed By: #### C BC Auto Diff #### [place] [address] [place] [address] Hematocrit (Bld) [Volume fraction] 36.1 % Normal 36.0 - 47.0 [facility] Comment on above: Performed By: #### C BC Auto Diff #### [place] [address] [place] [address] Hemoglobin (Bld) [Mass/Vol] 11.9 g/dL Low 12.0 - 16.0 [facility] Comment on above: Performed By: #### C BC Auto Diff #### [place] [address] [place] [address] Lymphocytes (Bld) [#/Vol] 2.1 10 X 3/mm Normal 1.0 - 4.0 [facility] Comment on above: Performed By: #### C BC Auto Diff #### [place] [address] [place] [address] Lymphocytes/100 WBC (Bld) 32 % Normal 20 - 40 [facility] Comment on above: Performed By: #### C BC Auto Diff #### [place] [address] [facility] [place] [address] MCH (RBC) [Entitic mass] 28.3 pg Normal 27.0 - 35.0 [facility] Comment on above: Performed By: #### C BC Auto Diff #### [place] [address] [place] [address] MCHC (RBC) [Mass/Vol] 33.1 g/dL Normal 32.0 - 36.0 [facility] Comment on above: Performed By: #### C BC Auto Diff #### [place] [address] [place] [address] MCV (RBC) [Entitic vol] 85.7 fL Normal 80.0 - 100.0 [facility] Comment on above: Performed By: #### C BC Auto Diff #### [address] [place] [address] Monocytes/100 WBC (Bld) 7 % Normal 1 - 15 [address] [facility] Comment on above: Performed By: #### C BC Auto Diff #### [address] [place] [address] Neutrophils/100 WBC (Bld) 59 % Normal 50 - 70 [facility] Comment on above: Performed By: #### C BC Auto Diff #### [place] [address] [place] [address] Platelet mean volume (Bld) [Entitic vol] 7.7 fL Normal 7.5 - 11.5 [facility] Comment on above: Performed By: #### C BC Auto Diff #### [address] [place] [address] Platelets (Bld) [#/Vol] 294 uLx10 Normal 150 - 450 [address] [facility] Comment on above: Performed By: #### C BC Auto Diff #### [address] [place] [address] RBC (Bld) [#/Vol] 4.21 10 X 6/mm Normal 4.20 - 5.40 [facility] Comment on above: Performed By: #### C BC Auto Diff #### [facility] [address] [place] [address] WBC (Bld) [#/Vol] 6.5 10 X 3/mm Normal 3.7 - 11.0 [facility] Comment on above: Performed By: #### C BC Auto Diff #### [facility] [address] [place] [address] SURGICALon 06-13-2018 SURGICAL [place] [facility] [id number] Assoc. Page 1 of [address] [place] [address] PROC: 06/13/2018 [facility] RECV: 06/16/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 Bits of disordered proliferative phase endometrium. Specimen: PRODUCTS OF CONCEPTION Gross Examination: The container is labeled Jodi Beltran, products of conception. Received in formalin in a cloth collection sac are fragments of red-mcmullen tissue and blood clot aggregating to 6 x 2 x 2 cm. The specimen consists mainly of blood clot. No discrete or placental tissue is identified. Cloth Presser sections are submitted in two cassettes. ss. FIONA/IRAMR:[email or web address] Microscopic Examination: A few infarcted immature chorionic villi are present in blood clot. Some infarcted decidual tissue is also present. No enlarged cisterns or abnormal trophoblastic proliferations are seen, however there is extensive degenerative change throughout the products of conception. A small amount of endometrial tissue is present. The glands and stroma are benign. The endometrial tissue does not have a gestational appearance. The endometrium is most consistent with proliferative phase pattern. No plasma cell infiltrate is identified in the endometrium. A few bits of benign endocervical mucosa are also present. No dysplastic cells are seen. [id number] M[address]ANIELS., [facility]/ [facility] Printed on: 06/17/[address] [place] [id number] Original print date: 06/17/2018 Normal [facility] Vital Signs Date Time Vital Sign Value Performing Clinician Facility 03-03-2022 13:36-0500 Body mass index (BMI) [Ratio] 46.52 kg/m2 Paulina Rosas DO Work Phone: [facility] [employer] 03-03-2022 13:36-0500 Body temperature 97 [degF] Paulina Rosas DO Work Phone: [facility] [employer] 03-03-2022 13:36-0500 Body weight 134.72 kg Paulina [facility] DO [facility] 03-03-2022 13:36-0500 Diastolic blood pressure 77 mm[Hg] Paulina Rosas DO Work Phone: [facility] [employer] 03-03-2022 13:36-0500 Heart rate 81 /min Paulina Rosas DO Work Phone: [facility] [employer] 03-03-2022 13:36-0500 Respiratory rate 16 /min Paulina Rosas DO Work Phone: [facility] [employer] 03-03-2022 13:36-0500 SaO2% (BldA) [Mass fraction] 100 % Paulina Rosas DO Work Phone: [facility] [employer] 03-03-2022 13:36-0500 Systolic blood pressure 131 mm[Hg] Paulina Scottbal DO Work Phone: [facility] [employer] 10-03-2020 13:22-0400 Body mass index (BMI) [Ratio] 45.04 kg/m2 [facility]: 10-03-2020 13:22-0400 Body temperature 97.81 [degF] [employer] Phone: 10-03-2020 13:22-0400 Body weight 138.35 kg [employer] Phone: 10-03-2020 13:22-0400 Diastolic blood pressure 91 mm[Hg] [employer] Phone: 10-03-2020 13:22-0400 Heart rate 84 /min [employer] Phone: 10-03-2020 13:22-0400 Respiratory rate 14 /min [employer] Phone: 10-03-2020 13:22-0400 SaO2% (BldA) [Mass fraction] 97 % [employer] Phone: 10-03-2020 13:22-0400 Systolic blood pressure 152 mm[Hg] [employer] Phone: 05-16-2020 21:41-0500 Body Temperature 97 [degF] Amanda Mata [employer] Phone: 05-16-2020 21:41-0500 BP Diastolic 45 mm[Hg] Amanda Mata [employer] Phone: 05-16-2020 21:41-0500 BP Systolic 123 mm[Hg] Amanda Mata [employer] Phone: 05-16-2020 21:41-0500 Pulse (Heart Rate) 79 /min Amanda Mata [employer] Phone: 05-16-2020 21:41-0500 Pulse Oximetry 97 % Amanda Mata [employer] Phone: 05-16-2020 21:41-0500 Respiratory Rate 18 /min Amanda Mata [employer] Phone: 03-15-2020 16:30-0500 BP Diastolic 91 mm[Hg] [place] Comment on above: Simultaneous filing. User may not have s een previous data. 03-15-2020 16:30-0500 BP Systolic 143 mm[Hg] [place] Comment on above: Simultaneous filing. User may not have s een previous data. 03-15-2020 16:30-0500 Pulse Oximetry 99 % [facility] 03-15-2020 14:59-0500 BMI (Body Mass Index) 42.83 kg/m2 [facility] 03-15-2020 14:59-0500 Body Temperature 97.9 [degF] [facility] 03-15-2020 14:59-0500 Body weight 131.54 kg [facility] 03-15-2020 14:59-0500 Height 175.3 cm [facility] 03-15-2020 14:59-0500 Pulse (Heart Rate) 93 /min [facility] 03-15-2020 14:59-0500 Respiratory Rate 16 /min [facility] 11-28-2019 17:45-0400 BMI (Body Mass Index) 41.35 kg/m2 Aki Rodgers [facility] 11-28-2019 17:45-0400 Body Temperature 98.49 [degF] Aik Rodgers [facility], [place] 11-28-2019 17:45-0400 Body weight 127.01 kg Aki Rodgers [facility], [place] 11-28-2019 17:45-0400 BP Diastolic 98 mm[Hg] Aki Rodgers [facility], [place] 11-28-2019 17:45-0400 BP Systolic 120 mm[Hg] Aki Rodgers [facility], [place] 11-28-2019 17:45-0400 Pulse (Heart Rate) 64 /min Aki Mejia [facility], [place] 11-28-2019 17:45-0400 Pulse Oximetry 98 % Aki Rodgers [facility], [place] 11-28-2019 17:45-0400 Respiratory Rate 18 /min Aki Rodgers [facility], [place] 11-24-2019 07:21-0400 BP Diastolic 91 mm[Hg] [facility] [place] 11-24-2019 07:21-0400 BP Systolic 138 mm[Hg] [facility] [place] 11-24-2019 07:21-0400 Pulse (Heart Rate) 55 /min Parrish [facility], [place] 11-24-2019 07:21-0400 Pulse Oximetry 97 % [facility] [place] 11-24-2019 07:21-0400 Respiratory Rate 18 /min [facility] [place] 11-24-2019 06:02-0400 Body Temperature 97 [degF] [facility] [place] 10-17-2019 00:33-0400 BP Diastolic 49 mm[Hg] [facility] 10-17-2019 00:33-0400 BP Systolic 109 mm[Hg] [facility] 10-17-2019 00:33-0400 Pulse (Heart Rate) 51 /min [facility] 10-17-2019 00:33-0400 Pulse Oximetry 97 % [facility] 10-16-2019 22:02-0400 Body Temperature 98.29 [degF] [facility] 10-16-2019 22:02-0400 Respiratory Rate 16 /min [facility] 09-27-2019 08:11-0400 Body Temperature 98.01 [degF] [facility], [place] 09-27-2019 08:11-0400 BP Diastolic 77 mm[Hg] [facility] 09-27-2019 08:11-0400 BP Systolic 112 mm[Hg] [facility] 09-27-2019 08:11-0400 Pulse (Heart Rate) 68 /min [facility], [place] 09-27-2019 08:11-0400 Respiratory Rate 16 /min [facility] [place] 09-25-2019 09:24-0400 Pulse Oximetry 97 % [facility]kae [facility] [place] 09-18-2019 13:12-0400 BP Diastolic 77 mm[Hg] [facility] Mosquera [facility] [place], [place] 09-18-2019 13:12-0400 BP Systolic 121 mm[Hg] [facility]kerkae [facility] [place] 09-18-2019 13:12-0400 Pulse (Heart Rate) 85 /min [facility]ker [facility] [place] 09-18-2019 12:42-0400 Body Temperature 98.1 [degF] Iker Mosquera [facility] [place] 09-18-2019 12:42-0400 Respiratory Rate 20 /min Ikerkae Mejia [facility], [place] 09-18-2019 00:21-0400 BP Diastolic 72 mm[Hg] [facility] Mosquera [facility], [place] 09-18-2019 00:21-0400 BP Systolic 113 mm[Hg] [facility] Mosquera [facility] [place] 09-18-2019 00:21-0400 Pulse (Heart Rate) 82 /min Ikerkae [facility]qu[facility], [place] 09-17-2019 23:07-0400 Body Temperature 99 [degF] Iker Mosquera [facility], [place] 08-06-2019 01:25-0400 Body Temperature 98.2 [degF] Jhon Pang [facility], [place] 08-06-2019 01:25-0400 BP Diastolic 60 mm[Hg] Jhon Pang [facility], [place] 08-06-2019 01:25-0400 BP Systolic 105 mm[Hg] Jhon Pang [facility] [place] 08-06-2019 01:25-0400 Pulse (Heart Rate) 77 /min Jhon Pang [facility], [place] 08-06-2019 01:25-0400 Pulse Oximetry 97 % Jhon Mejia [facility], [place] 08-06-2019 01:25-0400 Respiratory Rate 16 /min Jhon Mejia [facility], [place] 08-05-2019 23:52-0400 Body Temperature 97.81 [degF] Iker Mosquera [facility], [place] 08-05-2019 23:52-0400 BP Diastolic 65 mm[Hg] [facility] [place] 08-05-2019 23:52-0400 BP Systolic 118 mm[Hg] [facility] [place] 08-05-2019 23:52-0400 Pulse (Heart Rate) 98 /min [facility] [place] 08-05-2019 23:52-0400 Respiratory Rate 16 /min [facility] [place] 07-09-2019 16:03-0400 Body Temperature 96.4 [degF] [address] [facility] [place] 07-09-2019 16:03-0400 BP Diastolic 73 mm[Hg] [address] [facility] [place] 07-09-2019 16:03-0400 BP Systolic 124 mm[Hg] [address] [facility] [place] 07-09-2019 16:03-0400 Pulse (Heart Rate) 98 /min [address] [facility] [place] 07-09-2019 16:03-0400 Respiratory Rate 20 /min [address] [facility] [place] 07-03-2019 18:23-0400 Body Temperature 98.49 [degF] [facility] [place] 07-03-2019 18:23-0400 BP Diastolic 56 mm[Hg] [facility] [place] 07-03-2019 18:23-0400 BP Systolic 104 mm[Hg] [facility] [place] 07-03-2019 18:23-0400 Pulse (Heart Rate) 95 /min [facility] [place], [place] 07-03-2019 18:23-0400 Respiratory Rate 20 /min [facility] [place] 07-03-2019 15:45-0400 Body Temperature 97.3 [degF] [address] [facility] [place] 07-03-2019 15:45-0400 BP Diastolic 68 mm[Hg] [address] [facility] [place] 07-03-2019 15:45-0400 BP Systolic 121 mm[Hg] [address] [facility] [place] 07-03-2019 15:45-0400 Pulse (Heart Rate) 93 /min [address], [place] 07-03-2019 15:45-0400 Respiratory Rate 20 /min [address], [place] 06-18-2019 14:37-0400 BMI (Body Mass Index) 41.35 kg/m2 [facility], [place] 06-18-2019 14:37-0400 Body Temperature 98.91 [degF] [facility] 06-18-2019 14:37-0400 Body weight 127.01 kg [facility] 06-18-2019 14:37-0400 BP Diastolic 61 mm[Hg] [facility] 06-18-2019 14:37-0400 BP Systolic 130 mm[Hg] [facility] 06-18-2019 14:37-0400 Height 175.3 cm [place], [place] 06-18-2019 14:37-0400 Pulse (Heart Rate) 89 /min [place] 06-18-2019 14:37-0400 Respiratory Rate 16 /min [place] 03-04-2019 17:42-0500 Body mass index (BMI) [Ratio] 38.4 kg/m2 Jose Thompson MD [facility] Phone: [facility] Work Phone: 03-04-2019 17:42-0500 Body temperature 97.39 [degF] Jose Thompson MD Work Phone: [facility] Work Phone: 03-04-2019 17:42-0500 Body weight 117.94 kg Jose Thompson MD Work Phone: [employer] Work Phone: 03-04-2019 17:42-0500 Diastolic blood pressure 69 mm[Hg] Jose Thompson MD Work Phone: [employer] Work Phone: 03-04-2019 17:42-0500 Heart rate 88 /min Jose Thompson MD Work Phone: [employer] Work Phone: 03-04-2019 17:42-0500 Respiratory rate 18 /min Jose Thompson MD Work Phone: [employer] Work Phone: 03-04-2019 17:42-0500 SaO2% (BldA) [Mass fraction] 98 % Jose Thompson MD Work Phone: [employer] Work Phone: 03-04-2019 17:42-0500 Systolic blood pressure 122 mm[Hg] Jose Thompson MD Work Phone: [employer] Work Phone: 03-01-2019 19:05-0500 Respiratory rate 16 /min Aki Virgen MD Work Phone: [employer] Work Phone: 03-01-2019 18:54-0500 SaO2% (BldA) [Mass fraction] 100 % Aki Virgen MD Work Phone: [employer] Work Phone: 03-01-2019 17:35-0500 Body mass index (BMI) [Ratio] 38.84 kg/m2 Aki Virgen MD Work Phone: [employer] Work Phone: 03-01-2019 17:35-0500 Body temperature 98.1 [degF] Aki Virgen MD Work Phone: [employer] Work Phone: 03-01-2019 17:35-0500 Body weight 119.3 kg Aki Virgen MD Work Phone: [employer] Work Phone: 03-01-2019 17:35-0500 Diastolic blood pressure 81 mm[Hg] Aki Virgen MD Work Phone: [employer] Work Phone: 03-01-2019 17:35-0500 Heart rate 89 /min Aki Virgen MD Work Phone: [facility] Work Phone: 03-01-2019 17:35-0500 Systolic blood pressure 128 mm[Hg] Aki Virgen MD Work Phone: [facility] Work Phone: 01-27-2019 14:29-0500 Body Temperature 97.5 [degF] [place] 01-27-2019 14:29-0500 BP Diastolic 72 mm[Hg] [place] 01-27-2019 14:29-0500 BP Systolic 117 mm[Hg] [place] 01-27-2019 14:29-0500 Pulse (Heart Rate) 80 /min [place] 01-27-2019 14:29-0500 Pulse Oximetry 99 % [place] 01-27-2019 14:29-0500 Respiratory Rate 16 /min [place] 01-27-2019 13:23-0500 BMI (Body Mass Index) 38.4 kg/m2 [place], [place] 01-27-2019 13:23-0500 Body weight 117.94 kg [place] 01-27-2019 13:23-0500 Height 175.3 cm [place] 01-03-2019 10:53-0400 Respiratory Rate 16 /min [place] 01-03-2019 09:47-0400 BMI (Body Mass Index) 36.92 kg/m2 [facility] [place] 01-03-2019 09:47-0400 Body Temperature 98.8 [degF] [facility] 01-03-2019 09:47-0400 Body weight 113.4 kg [place], [place] 01-03-2019 09:47-0400 BP Diastolic 85 mm[Hg] [place] 01-03-2019 09:47-0400 BP Systolic 113 mm[Hg] [place] 01-03-2019 09:47-0400 Pulse (Heart Rate) 79 /min Parker Greco [place], [place] 01-03-2019 09:47-0400 Pulse Oximetry 98 % [place] 12-14-2018 19:12-0400 BMI (Body Mass Index) 36.92 kg/m2 [place], [place] 12-14-2018 19:12-0400 Body Temperature 98.1 [degF] [place], [place] 12-14-2018 19:12-0400 Body weight 113.4 kg [place] 12-14-2018 19:12-0400 BP Diastolic 76 mm[Hg] [place] 12-14-2018 19:12-0400 BP Systolic 125 mm[Hg] [place] 12-14-2018 19:12-0400 Height 175.3 cm [place] 12-14-2018 19:12-0400 Pulse (Heart Rate) 69 /min [place] 12-14-2018 19:12-0400 Pulse Oximetry 100 % [place] 12-14-2018 19:12-0400 Respiratory Rate 19 /min [place] Encounters Encounter Date Encounter Type Care Provider Facility Start: 02-28-2023 End: 03-01-2023 ambulatory KENNEDY L FLORO Not Available Start: 02-20-2023 End: 02-21-2023 ambulatory KENNEDY L FLORO Not Available Start: 02-14-2023 End: 02-15-2023 ambulatory KENNEDY L FLORO Not Available Start: 02-06-2023 End: 02-07-2023 ambulatory KENNEDY L FLORO Not Available Start: 01-24-2023 End: 01-25-2023 ambulatory KENNEDY L FLORO Not Available Start: 03-03-2022 End: 03-03-2022 Emergency department patient visit PAULINA Bashir [facility] Start: 03-03-2022 End: 03-03-2022 Emergency department patient visit Paulina Rosas DO Work Phone: [facility] ED Comment on above: Sprain of left knee, unspecified ligament, initial encounter (Primary Dx) Start: 10-30-2021 End: 10-30-2021 Emergency department patient visit PAULINA Bashir ROSAS [facility] Start: 08-04-2021 End: 08-05-2021 ambulatory [facility]ER [facility] Start: 06-30-2021 End: 07-03-2021 [facility] Start: 06-30-2021 End: 07-02-2021 Subsequent hospital visit by physician Mth Ultrasound Room 2 At [facility] Ultrasound Comment on above: Left breast lump Left breast mass Start: 10-03-2020 End: 10-03-2020 Emergency department patient visit [facility] ED Comment on above: Lower abdominal pain (Primary Dx); Acute right-sided low back pain with sciatica, sciatica laterality unspecified Start: 05-16-2020 End: 05-16-2020 Emergency department patient visit Amanda Mata Work Phone: [facility] ED Comment on above: Right sided sciatica (Primary Dx); Nonintractable headache, unspecified chronicity pattern, unspecified headache type Start: 03-15-2020 End: 03-15-2020 Emergency department patient visit [facility] ED Comment on above: Flank pain (Primary Dx) Start: 11-28-2019 End: 11-28-2019 Emergency department patient visit Aki Rodgers [facility] ED Comment on above: Strain of lumbar reg ion, initial encounter (Primary Dx) Start: 11-24-2019 End: 11-24-2019 Emergency department patient visit Parrish Palacios Work Phone: [facility] ED Comment on above: Local reaction to be e sting, accidental or unintentional, initial encounter (Primary Dx) Start: 10-16-2019 End: 10-17-2019 Emergency department patient visit Lukas Cardenas Work Phone: [facility] ED Comment on above: Other complicated he adache syndrome (Primary Dx) Start: 09-25-2019 End: 09-27-2019 Evaluation and management of inpatient Iker Mosquera Work Phone: [facility] Labor and Delivery Comment on above: delivery de livered (Primary Dx) Start: 09-24-2019 End: 09-24-2019 Subsequent hospital visit by physician [facility] Start: 09-21-2019 End: 09-23-2019 Subsequent hospital visit by physician Mal[facility] Ultrasound Room [facility] Ultrasound Comment on above: Oligohydramnios, ant epartum, single or unspecified fetus Start: 09-18-2019 End: 09-18-2019 Subsequent hospital visit by physician Iker Mosquera [facility] Start: 09-17-2019 End: 09-18-2019 Subsequent hospital visit by physician Iker [facility]quera [facility] Start: 08-06-2019 End: 08-06-2019 Emergency department patient visit Jhon Pang Work Phone: [facility] ED Comment on above: Constipation, unspec ified constipation type (Primary Dx); External hemorrhoids without complication Start: 08-05-2019 End: 08-06-2019 Subsequent hospital visit by physician Iker Mosquera Work Phone: [facility] Labor and Delivery Start: 07-09-2019 End: 07-09-2019 Subsequent hospital visit by physician Malu Op Treatment Rm 03 [facility] Specialty Clinic (MOB) Start: 07-03-2019 End: 07-03-2019 Subsequent hospital visit by physician Iker Mosquera Work Phone: [facility] Labor and Delivery Start: 07-03-2019 End: 07-03-2019 Subsequent hospital visit by physician Malu Op Treatment Rm 01 [facility] Specialty Clinic (MOB) Start: 07-02-2019 End: 07-02-2019 Subsequent hospital visit by physician Malu Lab Drawing Room [facility] Laboratory Comment on above: Arrived Start: 06-18-2019 End: 06-18-2019 Subsequent hospital visit by physician Denise Castillo Work Phone: [facility] Labor and Delivery Start: 06-08-2019 End: 06-08-2019 Subsequent hospital visit by physician [facility]U Laboratory Start: 05-04-2019 End: 05-06-2019 Subsequent hospital visit by physician [facility] Ultrasound Room [facility] Ultrasound Comment on above: screening for malformation using ultrasonics Start: 04-01-2019 End: 04-03-2019 Subsequent hospital visit by physician [facility] Ultrasound Comment on above: Acute LUQ pain Start: 03-04-2019 End: 03-04-2019 Emergency department patient visit Jose Thompson MD Work Phone: [facility] ED Comment on above: Umbilical hernia wit hout obstruction and without gangrene (Primary Dx); Abdominal pain during in first trimester Start: 03-01-2019 End: 03-01-2019 Emergency department patient visit Aki Virgen MD Work Phone: [facility] ED Comment on above: Viral URI with cough (Primary Dx) Start: 02-19-2019 End: 02-21-2019 Subsequent hospital visit by physician [facility] Ultrasound Room 2 At [facility] Ultrasound Comment on above: Intrauterine pregnan cy; Abdominal pain, RLQ; LLQ abdominal pain; Pain, abdominal, RLQ; Pain, abdominal, LLQ Start: 01-28-2019 End: 01-28-2019 Subsequent hospital visit [facility] Start: 01-27-2019 End: 01-27-2019 Emergency department patient visit [facility] ED Comment on above: Non-intractable vomi ting with nausea, unspecified vomiting type (Primary Dx); Positive test Start: 01-26-2019 End: 01-26-2019 Subsequent hospital visit by physician Chana [facility] Start: 01-03-2019 End: 01-03-2019 Emergency department patient visit Parker Greco Work Phone: [facility] ED Comment on above: Sprain of left wrist , initial encounter (Primary Dx) Start: 12-14-2018 End: 12-14-2018 Emergency department patient visit Lukas Cardenas Work Phone: [facility] ED Comment on above: Ventral hernia witho ut obstruction or gangrene (Primary Dx) Start: 10-16-2015 End: 10-16-2015 Emergency department patient visit [address] Facility:[facility] Procedures Date Procedure Procedure Detail Performing Clinician Start: 03-03-2022 Radiologic examination knee 3 views Paulina Rosas DO Work Phone: Start: 06-30-2021 Us breast uni real time with image limited Iker Mosqurea MD Work Phone: Start: 06-30-2021 Diagnostic mammography computer-aided detcj bi Iker Mosquera MD Work Phone: Start: 10-03-2020 Ct abdomen & pelvis w/contrast material Ken Langley [employer] Work Phone: Start: 10-03-2020 Assay of lipase Ken Langley [employer] Work Phone: Start: 10-03-2020 Urinalysis microscopic only Ken Langley [employer] [facility]C Work Phone: Start: 10-03-2020 Urnls dip stick/tablet rgnt auto w/o microscopy Ken Langley [employer] PA[facility]C Work Phone: Start: 03-15-2020 Ct abdomen & pelvis w/o contrast material Fredrick Santana Work Phone: Start: 03-15-2020 Assay of amylase Fredrick Santana Work Phone: Start: 03-15-2020 Assay of lipase Fredrick Vickersund Work Phone: Start: 03-15-2020 Blood count complete auto&auto difrntl wbc Fredrick Vickersund Work Phone: Start: 03-15-2020 Urinalysis microscopic only Fredrick Vickersund Work Phone: Start: 03-15-2020 Urine test visual color cmprsn meths Fredrick Vickersund Work Phone: Start: 03-15-2020 Urnls dip stick/tablet rgnt auto w/o microscopy Fredrick Santana Work Phone: Start: 09-26-2019 Blood count hemoglobin Iker Mosquera Work Phone: Start: 09-26-2019 DORI Iker Mosquera Work Phone: Start: 09-25-2019 Drug screen class list a Iker Mosquera Work Phone: Start: 09-24-2019 Blood count complete auto&auto difrntl wbc Iker Mosquera Work Phone: Start: 09-21-2019 biophysical profile w/o non-stress testing Iker Mosquera Work Phone: Start: 09-18-2019 Protein total xcpt refractometry urine Iker Mosquera Work Phone: Start: 09-18-2019 Urnls dip stick/tablet rgnt auto w/o microscopy Iker Mosquera Work Phone: Start: 09-18-2019 nonstress test Iker Mosquera Work Phone: Start: 09-17-2019 Urnls dip stick/tablet rgnt auto w/o microscopy Iker Mosquera Work Phone: Start: 09-08-2019 GBS, EXTERNAL RESULT Historical Provider Start: 08-06-2019 nonstress test Iekr Mosquera Work Phone: Start: 08-05-2019 Urnls dip stick/tablet rgnt auto w/o microscopy Iker Mosquera Work Phone: Start: 07-03-2019 Urnls dip stick/tablet reagent auto microscopy Iker Mosquera Work Phone: Start: 07-02-2019 Blood typing serologic rh (d) Iker Mosquera Work Phone: Start: 06-18-2019 Urnls dip stick/tablet rgnt auto w/o microscopy Denise Castillo Work Phone: Start: 06-08-2019 Blood count complete automated Iker Mosquera Work Phone: Start: 06-08-2019 Glucose tolerance test gtt 3 specimens Iker Mosquera Work Phone: Start: 05-04-2019 Us preg uterus after 1st trimest 03/18 gestation Iker Mosquera Work Phone: Start: 04-01-2019 Us abdominal real time w/image documentation Iker Mosquera MD Work Phone: Start: 03-31-2019 C. TRACHOMATIS, EXTERNAL RESULT Historical Provider Start: 03-31-2019 N. GONORRHOEAE, EXTERNAL RESULT Historical Provider Start: 03-04-2019 Assay of lipase Jose Thompson MD Work Phone: Start: 03-04-2019 Urinalysis microscopic only Jose Thompson MD Work Phone: Start: 03-04-2019 Urine test visual color cmprsn meths Jose Thompson MD Work Phone: Start: 02-19-2019 Us preg uterus real time w/image dcmtn transvag Iker Mosquera Work Phone: Start: 02-19-2019 Us uterus 14 wk transabdl 03/18 gestat Iker Mosquera Work Phone: Start: 02-10-2019 ABO, EXTERNAL RESULT Historical Provider Start: 02-10-2019 HEPATITIS B, EXTERNAL RESULT Historical Provider Start: 02-10-2019 HIV, EXTERNAL RESULT Historical Provider Start: 02-10-2019 RH FACTOR, EXTERNAL RESULT Historical Provider Start: 02-10-2019 RPR, EXTERNAL RESULT Historical Provider Start: 02-10-2019 RUBELLA TITER, EXTERNAL RESULT Historical Provider Start: 01-28-2019 Gonadotropin chorionic quantitative Iker Mosquera Work Phone: Start: 01-27-2019 Urinalysis microscopic only Em Crawley Work Phone: Start: 01-27-2019 Urine test visual color cmprsn meths Em Crawley Work Phone: Start: 01-27-2019 Urnls dip stick/tablet rgnt auto w/o microscopy Em Crawley Work Phone: Start: 01-26-2019 Gonadotropin chorionic qualitative Iker Mosquera Work Phone: Start: 01-03-2019 Radex wrist complete minimum 3 views Parker Lukas Greco Work Phone: Start: 01-03-2019 Radex hand 2 views Parker Lukas Greco Work Phone: Start: 12-14-2018 Assay of lipase Lukas [employer] Work Phone: Start: 12-14-2018 Blood count complete auto&auto difrntl wbc [employer]as [employer] Work Phone: Start: 12-14-2018 Lactate [Moles/Vol] [employer] Work Phone: Start: 12-14-2018 Urinalysis microscopic only Gilberto Hendrickson Work Phone: Start: 12-14-2018 Urine test visual color cmprsn meths [employer]as [employer] Work Phone: Start: 12-14-2018 Urnls dip stick/tablet rgnt auto w/o microscopy Gilberto Hendrickson Work Phone: H/O: section Status pos t repeat low transverse section Plan of Treatment Date Care Activity Detail Author Start: 07-08-2029 DTaP/Tdap/Td vaccine (4 - Td or Tdap) DTaP/Tdap/Td vaccine (4 - Td or Tdap) [facility] Start: 07-08-2029 DTaP/Tdap/Td vaccine (4 - Td) DTaP/Tdap/Td vaccine (4 - Td) [place] Start: 03-07-2026 DTaP/Tdap/Td vaccine (3 - Td) DTaP/Tdap/Td vaccine (3 - Td) [place] Start: 03-29-2022 End: 03-29-2022 Patient encounter procedure 03/29/2022 Office Visit Neurology Coleman Wilburn MD [address] [place] [address] [facility] NEUROLOGY Part of [facility] Start: 11-16-2021 Influenza vaccination Flu vacc ine (Season Ended) [facility] Start: 10-16-2021 Influenza vaccination Flu vaccine (# 1) [facility] Start: 07-24-2021 End: 07-24-2021 Patient encounter procedure 07/24/2021 Procedure visit Obstetrics and Gynecology Denise Castillo, HEALTHCARE RECRUITER - CN [address] [place] [address] [facility] Start: 03-14-2021 COVID-19 Vaccine (2 - Booster for Eduard series) COVID-19 Vaccine (2 - Booster for Eduard series) [facility] Start: 11-16-2020 Influenza vaccination Flu vaccine (# 1) [facility] Work Phone: Start: 02-24-2020 Screening for malign ant neoplasm of cervix [facility] Start: 11-17-2019 Influenza vaccination [facility] [place] Start: 09-25-2019 End: 09-25-2019 Hospital Encounter [facility] Labor and Delivery Comment on above: SECTION Start: 09-24-2019 End: 09-24-2019 Appointment 09/24/2019 [facility]ment IP [facility] Start: 09-18-2019 End: 09-18-2019 Appointment 09/18/2019 Appointment IP Unit [facility] OP LD Start: 07-09-2019 End: 07-09-2019 Appointment 07/09/2019 Appointment Infusion Therapy [facility] ([facility]) Start: 07-03-2019 End: 07-03-2019 Appointment 07/03/2019 Appointment Infusion Therapy [facility] ([facility] Start: 11-16-2018 Influenza vaccination Flu vaccine (# 1) [facility] [place] Start: 2011 Cervical cancer screen Cervical canc er screen [place] Start: 2011 Screening for malign ant neoplasm of cervix [facility] Start: 02-24-2008 Hepatitis C screening Hepatitis C sc reen [facility] Start: 2003 Varicella Vaccine (1 of 2 - 13+ 2-dose series) Varicella Vaccine (1 of 2 - 13+ 2-dose series) [place] Start: 2002 COVID-19 Vaccine (1) COVID-19 Vaccin e (1) [facility] Work Phone: Start: 2002 Depression Screen Depression Screen [facility] Start: 02-24-1996 Pneumococcal 0-64 ye ars Vaccine (1 - PCV) Pneumococcal 0-64 years Vaccine (1 - PCV) [facility] Start: 02-24-1996 Pneumococcal 0-64 ye ars Vaccine (1 of 1 - PPSV23) Pneumococcal 0-64 years Vaccine (1 of 1 - PPSV23) [place] Start: 02-24-1996 Pneumococcal 0-64 ye ars Vaccine (1 of 2 - PPSV23) Pneumococcal 0-64 years Vaccine (1 of 2 - PPSV23) [facility] [employer] Phone: Start: 1991 Varicella Vaccine (1 of 2 - 2-dose childhood series) Varicella Vaccine (1 of 2 - 2-dose childhood series) [facility] Start: 1990 Hepatitis C screening Hepatitis C sc reen [facility] End: 08-06-2019 Bacteria identified Cx Nom (U) Urine culture Microbiology Routine One Time for 1 Occurrences starting 08/06/2019 until 08/06/2019 [place] Comment on above: One Time for 1 Occur rences starting 08/06/2019 until 08/06/2019 End: 09-17-2019 Bacteria identified Cx Nom (U) Urine culture Microbiology Routine One Time for 1 Occurrences starting 09/17/2019 until 09/17/2019 [place] Comment on above: One Time for 1 Occur rences starting 09/17/2019 until 09/17/2019 CT ABDOMEN PELVIS WO CONTRAST Additional Contrast? None CT ABDOMEN PELVIS WO CONTRAST Additional Contrast? None Imaging STAT 03/15/2020 3:44 PM [place] End: 03-15-2020 Culture, Urine Culture, Urine Microbiology STAT One Time for 1 Occurrences starting 03/15/2020 until 03/15/2020 [place] Comment on above: One Time for 1 Occur rences starting 03/15/2020 until 03/15/2020 Culture, Urine Culture, Urine Microbiology STAT 03/15/2020 3:00 PM EST [place] nonstress test [facility] [place] Comment on above: Daily until disconti nued starting 06/19/2019 Daily until disconti nued starting 08/06/2019, 1 completed Daily until disconti nued starting 09/18/2019, 1 completed HHN Treatment HHN Treatment Respiratory Care Routine 0600, 1000, 1400, 1800, 2200 until discontinued starting 03/01/2019 [facility] Work Phone: Comment on above: 0600, 1000, 1400, 18 00, 2200 until discontinued starting 03/01/2019 Initiate Oxygen Ther apy Protocol Initiate Oxygen Therapy Protocol Respiratory Care Routine Daily until discontinued starting 09/25/2019 [place] Comment on above: Daily until disconti nued starting 09/25/2019 Nonrebreather mask oxygen [place] Comment on above: As directed - RT (ND N) until discontinued starting 06/18/2019 As directed - RT (ND N) until discontinued starting 08/05/2019 As directed - RT (ND N) until discontinued starting 09/17/2019 RHOGAM ANTEPARTUM RHOGAM ANTEPAR JAI Blood Bank Routine 07/02/2019 4:04 PM EDT [place] End: 09-25-2019 Surgical Pathology Surgical Pathology Lab Routine One Time for 1 Occurrences starting 09/25/2019 until 09/25/2019 [place] Comment on above: One Time for 1 Occur rences starting 09/25/2019 until 09/25/2019 End: 09-25-2019 Surgical Pathology Surgical Pathology Lab Routine Once for 1 Occurrences starting 09/25/2019 until 09/25/2019 [place] Comment on above: Once for 1 Occurrenc es starting 09/25/2019 until 09/25/2019 End: 06-18-2019 SVE SVE Point of Care Testing Routine One Time for 1 Occurrences starting 06/18/2019 until 06/18/2019 [place] Comment on above: One Time for 1 Occur rences starting 06/18/2019 until 06/18/2019 End: 08-06-2019 SVE SVE Point of Care Testing Routine One Time for 1 Occurrences starting 08/06/2019 until 08/06/2019 [place] Comment on above: One Time for 1 Occur rences starting 08/06/2019 until 08/06/2019 End: 09-17-2019 SVE SVE Point of Care Testing Routine One Time for 1 Occurrences starting 09/17/2019 until 09/17/2019 [place] Comment on above: One Time for 1 Occur rences starting 09/17/2019 until 09/17/2019 End: 09-24-2019 TYPE AND SCREEN TYPE AND SCREEN Blood Bank Routine One Time for 1 Occurrences starting 09/24/2019 until 09/24/2019 [place] Comment on above: One Time for 1 Occur rences starting 09/24/2019 until 09/24/2019 TYPE AND SCREEN TYPE AND SCREEN Blood Bank [employer] Label Print 09/24/2019 2:15 PM EDT [place] US OB LESS THAN 14 W EEKS SINGLE OR FIRST GESTATION US OB LESS THAN 14 WEEKS SINGLE OR FIRST GESTATION Imaging Routine Intrauterine Pain, abdominal, RLQ Pain, abdominal, LLQ 02/19/2019 11:18 AM [place] US OB TRANSVAGINAL US OB TRANSVA GINAL Imaging Routine Intrauterine Abdominal pain, RLQ LLQ abdominal pain 02/19/2019 11:18 AM [place] XR HAND LEFT (2 VIEWS) XR HAND L EFT (2 VIEWS) Imaging STAT 01/03/2019 9:59 AM [place], [place] XR WRIST LEFT (MIN 3 VIEWS) XR WRIST LEFT (MIN 3 VIEWS) Imaging STAT 01/03/2019 9:59 AM [place] Immunizations Immunization Date Immunization Notes Care Provider Fa dave 09-25-2019 diphtheria, tetanus toxoids and acellular pertussis vaccine, unspecified formulation [place] 09-25-2019 RHO(D) immune globul in - IM [place] 07-09-2019 diphtheria, tetanus toxoids and acellular pertussis vaccine, unspecified formulation [address] 07-09-2019 influenza quadrivale nt split vaccine (FLUZONE;FLUARIX;FLULAV AL;AFLURIA) injection 0.[address] 07-09-2019 influenza, injectabl e, quadrivalent, preservative free [address], [place] 07-09-2019 tetanus toxoid, redu phuong diphtheria toxoid, and acellular pertussis vaccine, adsorbed [address] 03-07-2016 influenza, injectabl e, quadrivalent, preservative free [facility] 03-07-2016 tetanus toxoid, redu phuong diphtheria toxoid, and acellular pertussis vaccine, adsorbed [facility], [place] 05-24-2013 tetanus toxoid, redu phuong diphtheria toxoid, and acellular pertussis vaccine, adsorbed [facility] NEGATED: Highlighted row has not occurred!02-19-2017 influenza, injectable, quadrivalent, preservative free [facility] Comment on above: Deferred: - Received through work this year at [facility] Payers Date Payer Category Payer Medicaid [id number] 2014 Unknown [facility] xxxxxxxxxxxx 2014-Present [phone] [address] [facility] [place] [address] xxxxxxxxxxxx [id number] 2014 Unknown [facility] [id number] 2014-Present [phone] [place] [address] [id number] 1990 Unknown [id number] 1990 Unknown [id number] 1990 Unknown [id number] 1990 Unknown [id number] 1990 Unknown [id number] 1990 Unknown [id number] 9 1990 Unknown [id number] 9 1990 Unknown [id number] 9 1990 Unknown [id number] 9 1990 Unknown [id number] Social History Date Type Detail Facility Start: 12-14-2018 End: 10-02-2021 Tobacco smoking status NHIS Current every day smoker [place] History of tobacco use Cigarette Smoker Sp [place] Start: 12-14-2018 End: 10-02-2021 Cigarettes smoked current (pack per day) - Reported [place] Start: 12-14-2018 End: 12-23-2018 Alcohol intake No [place] Start: 04-17-2017 Tobacco Comment states she [place] to [place] Start: 11-09-2013 Alcohol Comment social [place], [place] Start: 1990 Sex Assigned At Not on file [place], [place] Start: 01-27-2019 End: 10-03-2020 Alcohol intake Current non-drinker of alcohol (finding) [place] Start: 01-03-2019 Jackie Camilo Work Phone: Exposure to SARS-CoV -2 (event) Unable to assess [place] Start: 09-25-2019 End: 10-02-2021 Tobacco use and exposure Never used [place], [place] Start: 02-21-2022 End: 03-03-2022 Exposure to SARS-CoV-2 (event) Not sure [place] Start: 04-17-2017 End: 10-02-2021 Tobacco Comment states she wants to [employer] Phone: Start: 03-03-2022 Alcohol intake Current drinke r of alcohol (finding) [facility] [employer] Phone: Start: 07-31-2021 Alcohol Comment rare [facility] [employer] [facility] [employer] Phone: Start: 1990 Sex Assigned At Female B ON [employer] Goals Date Patient Goal Desired Activity /State Clinical Notes 03-01-2019 to 03-03-2022 Discharge InstructionsAttachmentsInstructionsAttachmentsInstructionsAttachments Note Date & Type Note Facility 03-03-2022 Hospital Discharg e instructions Paulina Rosas DO - 03/03/2022 3:14 PM EST Rest, ice and elevate your left knee. Tylenol and ibuprofen for pain as needed. Recommend wearing a knee brace to help with immobilization and stability. Weightbearing as tolerated. If pain persist's for another 1 to 2 weeks, recommend following up with your primary care doctor. The following attachments cannot be sent through Care Everywhere.Knee Sprain (Gambian)documented in this encounter [facility] [employer] Phone: 10-03-2020 [facility] Discharg e instructions Ken Jensen PA-C - 10/03/2020 Gentle stretching may be beneficial Ice or heat to affected area May use anti-inflammatory muscle relaxer if needed for back pain Zofran if needed for nausea Plenty of fluids Follow-up with the surgeon at your convenience Return if worse or other concerns The following attachments cannot be sent through Care Everywhere.Back: Stretches: Exercises (Gambian)Back Pain (Gambian)Abdominal Pain (Gambian)documented in this encounter [employer] Phone: 03-01-2019 [facility] Discharg e instructions Aki Virgen MD - 03/01/2019 Go to a pharmacy and brain picker [id number] cough syrup/Robitussin The following attachments cannot be sent through Care Everywhere.URI (Upper Respiratory Infection): Viral (Gambian)documented in this encounter [employer] Phone: Evaluation note Diagnosis Lower abdominal pain- Primary Abdominal pain, other specified site Acute right-sided low back pain with sciatica, sciatica laterality unspecified documented in this encounter [employer] Phone: evaluation note* Diagnosis Viral URI with cough- Primary Acute upper respiratory infections of unspecified site documented in this encounter [employer] Phone: evaluation note* Diagnosis Umbilical hernia without obstruction and without gangrene- Primary Abdominal pain during in first trimester documented in this encounter [employer] Phone: evalqciyuw note* Diagnosis Acute LUQ pain Abdominal pain, left upper quadrant documented in this encounter [employer] Phone: evalqexakr note* Diagnosis Left breast lump Lump or mass in breast documented in this encounter [employer] Phone: evalmibote note* Diagnosis Left breast mass Lump or mass in breast documented in this encounter [employer] Phone: evaluation note* Diagnosis Sprain of left knee, unspecified ligament, initial encounter- Primary documented in this encounter [facility] [employer] Phone: Hospital Discharge instructions* Attachments The following attachments cannot be sent through Care Everywhere. * Hernia (Gambian) [facility] Summary Purpose Family History No Family History Records FoundNo Family History Records FoundNo Family History Records FoundNo Family History Records FoundNo Family History Records FoundNo Family History Records Found Advance Directives No Advanced Directives Records FoundDocuments on File Type Date Recorded Patient Cloth Presser Expl anation Advance Directives and Living Will Power of System Designer Latest Code Status on File Code Status Date Activated Date Inactivated Comments Full Code 05/03/2017 9:16 AM 05/03/2017 10:52 AM Full Code 05/03/2017 5:24 AM 05/03/2017 9:16 AM Documents on File Type Date Recorded Patient Cloth Presser Expl anation Advance Directives and Living Will Power of System Designer Latest Code Status on File Code Status Date Activated Date Inactivated Comments Full Code 05/03/2017 9:16 AM 05/03/2017 10:52 AM Full Code 05/03/2017 5:24 AM 05/03/2017 9:16 AM Latest Code Status on File Code Status Date Activated Date Inactivated Comments Full Code 06/18/2019 2:41 PM 06/18/2019 5:27 PM Full Code 05/03/2017 9:16 AM 05/03/2017 10:52 AM Latest Code Status on File Code Status Date Activated Date Inactivated Comments Full Code 06/18/2019 2:41 PM Latest Code Status on File Code Status Date Activated Date Inactivated Comments Full Code 08/05/2019 11:53 PM Full Code 06/18/2019 2:41 PM 06/18/2019 5:27 PM Latest Code Status on File Code Status Date Activated Date Inactivated Comments Full Code 08/05/2019 11:53 PM 08/06/2019 1:24 AM Latest Code Status on File Code Status Date Activated Date Inactivated Comments Full Code 09/17/2019 11:17 PM Full Code 08/05/2019 11:53 PM 08/06/2019 1:24 AM Latest Code Status on File Code Status Date Activated Date Inactivated Comments Full Code 09/17/2019 11:17 PM 09/18/2019 2:52 AM Latest Code Status on File Code Status Date Activated Date Inactivated Comments Full Code 09/17/2019 11:17 PM 09/18/2019 2:52 AM Full Code 08/05/2019 11:53 PM 08/06/2019 1:24 AM Full Code 06/18/2019 2:41 PM 06/18/2019 5:27 PM Full Code 05/03/2017 9:16 AM 05/03/2017 10:52 AM Latest Code Status on File Code Status Date Activated Date Inactivated Comments Full Code 09/25/2019 10:20 AM Full Code 09/25/2019 5:51 AM 09/25/2019 10:20 AM Full Code 09/17/2019 11:17 PM 09/18/2019 2:52 AM Latest Code Status on File Code Status Date Activated Date Inactivated Comments Full Code 09/25/2019 10:20 AM 09/27/2019 4:17 PM Documents on File Type Date Recorded Patient Cloth Presser Expl anation ACP-Advance Directive ACP-Power of System Designer Documents on File Type Date Recorded Patient Cloth Presser Expl anation ACP-Advance Directive ACP-Power of System Designer Latest Code Status on File Code Status Date Activated Date Inactivated Comments Full Code 09/25/2019 10:20 AM 09/27/2019 4:17 PM Full Code 09/25/2019 5:51 AM 09/25/2019 10:20 AM Full Code 09/17/2019 11:17 PM 09/18/2019 2:52 AM Discharge Instructions * Attachments The following attachments cannot be sent through Care Everywhere. * Hernia (Gambian) documented in this encounter* Attachments The following attachments cannot be sent through Care Everywhere. * Wrist Sprain (Gambian) documented in this encounter* Instructions* Bia Maldonado RN - 07/03/[address] Mosquera ACTIVITY LIMITATIONS: ( )Up and about as desired and tolerated (x )Up to bathroom only (x )Lay on either side ( x )Avoid heavy lifting or exercise (x )No sex ( x )No nipple stimulation ( )Complet bedrest ( )Avoid using stairs ( x )Increase fluids DRINK AT LEAST eight-8oz. Glasses of water daily. INCREASING YOUR WATER INTAKE IS VERY IMPORTANT! Call your Doctor if: ( )Contractions are every 5 minutes apart (from start of one to the start of the next contraction) lasting 60 seconds for at least 1 hour, strong enough you can not walk or talk through the contraction and regular. ( x )Bag of water breaks ( x )Vaginal bleeding ( x )Unusual pain occurs ( x )Decreased movement (x ) labor: If you have 4 contractions in an hour Keep your scheduled follow up appointment. Or call for a follow up on . IN CASE OF EMERGENCY CONTACT LABOR AND DELIVERY . documented in this encounter* Instructions* Li Lopez, ABRAN - 07/03/2019 Outpatient Instructions for IM or Subcutaneous Injections [address] [place] [address] You are advised to carry out the following instructions: Diet: As prescribed by your physician. Activity: As prescribed by your physician. Care of the injection site: If your injection site becomes red, sore, swollen, painful,has drainage, or you develop a fever notify your Physician. Other: ? If you develop hives, rash, itching or have trouble breathing or any unusual symptoms, go to the nearest Emergency Room. These could be signs of an allergic reaction to the medication. Follow up appointment: ANY PROBLEMS OR CONCERNS FOLLOW UP WITH YOUR PHYSICIAN OR GO TO THE NEAREST EMERGENCY ROOM documented in this encounter* Instructions* Dennise Cordova RN - 07/09/2019 Verbally reviewed discharge instructions for care and follow up. Previous print out of these instructions were given with prior treatment.Patient verbalized understanding of these instructions. documented in this encounter* Instructions* Jonna Paredes RN - 06/18/[address] Mosquera ACTIVITY LIMITATIONS: (x )Up and about as desired and tolerated ( )Up to bathroom only ( )Lay on either side ( )Avoid heavy lifting or exercise ( )No sex ( )No nipple stimulation ( )Complet bedrest ( )Avoid using stairs ( x )Increase fluids DRINK AT LEAST eight-8oz. Glasses of water daily. Call your Doctor if: ( )Contractions are every 5 minutes apart (from start of one to the start of the next contraction) lasting 60 seconds for at least 1 hour, strong enough you can not walk or talk through the contraction and regular. ( x )Bag of water breaks (x )Vaginal bleeding ( x )Unusual pain occurs (x )Decreased movement ( x ) labor: If you have 4 contractions in an hour Keep your scheduled follow up appointment. Or call for a follow up on . IN CASE OF EMERGENCY CONTACT LABOR AND DELIVERY . documented in this encounter* Instructions* Blanca Jack RN - 08/06/[address] Mosquera ACTIVITY LIMITATIONS: ( x )Up and about as desired and tolerated ( )Up to bathroom only ( )Lay on either side ( )Avoid heavy lifting or exercise ( )No sex ( )No nipple stimulation ( )Complete bedrest ( )Avoid using stairs ( x )Increase fluids DRINK AT LEAST eight-8oz. Glasses of water daily. Call your Doctor if: ( x )Contractions are every 5 minutes apart (from start of one to the start of the next contraction) lasting 60 seconds for at least 1 hour, strong enough you can not walk or talk through the contraction and regular. ( x )Bag of water breaks ( x )Vaginal bleeding ( x )Unusual pain occurs ( x )Decreased movement ( x ) labor: If you have 4 contractions in an hour Keep your scheduled follow up appointment. IN CASE OF EMERGENCY CONTACT LABOR AND DELIVERY . documented in this encounter* Instructions* Jhon Pang MD - 08/06/2019 Metamucil every night for constipation * Attachments The following attachments cannot be sent through Care Everywhere. * Constipation (Gambian) * Hemorrhoids (Gambian) documented in this encounter* Instructions* Odalis Tineo RN - 09/18/2019 OUTPATIENT DISCHARGE Danielle Soto [facility] [place] or [place] [address] Mosquera Denise Nash [facility] Yodit Maradiaga [facility] Denise Castillo [facility] Quiana Goodman [facility] ACTIVITY LIMITATIONS: ( x)Up and about as desired and tolerated ( )Up to bathroom only ( )Lay on either side ( )Avoid heavy lifting or exercise ( )No sex ( )No nipple stimulation ( )Complet bedrest ( )Avoid using stairs (x )Increase fluids DRINK AT LEAST eight-8oz. Glasses of water daily. Call your Doctor if: ( x )Contractions are every 5 minutes apart (from start of one to the start of the next contraction) lasting 60 seconds for at least 1 hour, strong enough you can not walk or talk through the contraction and regular. ( x )Bag of water breaks (x )Vaginal bleeding ( x)Unusual pain occurs ( x )Decreased movement ( ) labor: If you have 4 contractions in an hour Keep your scheduled follow up appointment. follow up on 09/18/2019 at noon for follow up labs/bp . IN CASE OF EMERGENCY CONTACT LABOR AND DELIVERY . documented in this encounter* Instructions* Dayana Young RN - 09/27/2019 Follow-up with your OB doctor as specified. [facility] OB Department phone: Dr. Nicole Roy CNM Dr. Abida Tarango CNM [address] [facility] [address] [facility] [address] [place] Yodit Maradiaga, MSN, HEALTHCARE RECRUITER, CNM [facility] [address] [facility] [address] [address] Mosquera [address] [facility] [id number] Denise Castillo CNM [address] [place] [address] [place] [address] Quiana Goodman CNM [address] [place] [address] [place] [address] [phone] DIET Eat a well balanced diet focusing on foods high in fiber and protein. Drink plenty of fluids especially water. To avoid constipation you may take a mild stool softener as recommended by your doctor or engraver lettering. ACTIVITY Gradually increase your activity. Resume exercise regimen only after advice by your doctor or engraver lettering. Avoid lifting anything heavier than a gallon of milk for SIX weeks. Avoid driving until your doctor or engraver lettering has given their approval. Rise slowly from a lying to sitting and then a standing position. Climb stairs one at a time. Use caution when carrying your baby up and down the stairs. NO SEXUAL Activity for 4-6 weeks or until advised by your doctor; Nothing in vagina: intercourse, tampons, or douching. Be prepared to discuss family planning at your follow-up OB visit. You may feel tired or have a lack of energy. You may continue your vitamin to replenish nutrients post delivery. Nap when baby naps to catch up on sleep. EMOTIONS You may feel post, sad, teary, & overwhelmed. Contact your OB provider if you feel you may be showing signs of depression, or have thoughts of harming yourself or your infant. If infant will not stop crying, contact another adult for help or place in their crib on their back and take a break. NEVER shake your infant. BLEEDING Vaginal bleeding will decrease in amount over the next few weeks. You will notice that as your activity increases, your flow may increase. This is your body's way oftelling you, you need to take things easier and rest more often. Call your care provider if you are saturating more than one maxi pad in an hour & resting does not help. BREAST CARE Take medications as recommended by your doctor or engraver lettering for pain If you develop a warm, red, tender area on your breast or develop a fever contact your OB provider. For moms: If you become engorged, feeding may be more difficult or painful for 1-2 days. You may find it helpful to hand express some milk so that the can latch on more easily. While , continue to take your vitamins as directed by your doctor or engraver lettering. Refer to the booklet in the folder/binder for more information. If you feel you need more assistance or have questions, please call Stephanie Simpson IBCLC, natural remedy consultant, at or the OB department to schedule an appointment or phone consultation. For more FREE help, visit the Support Group on Saturday evenings at 7 pm in the OB department. For NON- moms: You may apply ice packs to your breasts over your bra for twenty minutes at a time for comfort. Avoid stimulation to your breasts, when showering allow the water to strike your back not your breasts. Wear a good fitting bra until your milk dries, such as a sports bra. INCISIONAL CARE / PATTIE CARE If you have an acticoat dressing in place after your please leave your dressing in place for one week until you follow up with your provider. They will remove this dressing in the office when you see them. If your dressing starts to peel up or becomes soiled prior to your appointment with your provider, you may remove the dressing and clean your incision as directed below. Clean your incision in the shower with mild soap. After shower pat the incision area dry and allow the area open to air. If used, Steri-strips should be completely removed by 2 weeks but you may remove them as they become loose or soiled. If used, Theresa should be removed by your care provider. If used/ordered, an abdominal binder may provide support for your incision. Use the pattie-bottle after toileting until bleeding stops. Cleanse your perineum from front to back If used, stitches will dissolve in 4-6 weeks. You may use a sitz bath or soak in a clean tub as needed for comfort. Kegel exercises will help restore bladder control. SWELLING Try to keep your legs elevated when you are sitting. When lying down keep your legs elevated. When wearing stocking or socks, make sure they are not too tight. WHEN TO CALL THE DOCTOR If you have a temp of 100.6 or more. If your bleeding has increased and you are saturating a pad in an hour. Your abdomen is tender to touch. You are passing blood clots bigger than the size of a lemon. If you are experiencing extreme weakness or dizziness. If you are having flu-like symptoms such as achy muscles or joints. There is a foul smell or a green color to your vaginal bleeding. If you have pain that cannot be relieved. You have persistent burning or frequency with urination. Call if you have concerns about your well-being. You are unable to sleep, eat, or are having thoughts of harming yourself or your baby. You have swelling, bleeding, drainage, foul odor, redness, or warmth in/around your incision or stitches. You have a red, warm, tender area in your calf. documented in this encounter* Instructions* Lukas Cardenas DO - 10/17/2019 Please pump and dump for the next 12 to 24 hours secondary to the medications given in the ER today * Attachments The following attachments cannot be sent through Care Everywhere. * Headache (Gambian) documented in this encounter* Attachments The following attachments cannot be sent through Care Everywhere. * Insect Stings and Bites (Gambian) documented in this encounter* Attachments The following attachments cannot be sent through Care Everywhere. * Back: Strain (Gambian) * Back Pain: Relief: General Info (Gambian) documented in this encounter* Instructions* Fredrick Santana APRN - FX ARTIST - 03/15/2020 Return to the emergency department for worsening symptoms. Follow-up with your primary care provider. * Attachments The following attachments cannot be sent through Care Everywhere. * Flank Pain (Gambian) documented in this encounter* Instructions* Em Crawley PA-C - 01/27/2019 Call to arrange follow-up with ENGINEERING WRITER listed below. * Attachments The following attachments cannot be sent through Care Everywhere. * Nausea and Vomiting (Gambian) documented in this encounter* Instructions* Amanda Mata DO - 05/16/2020 Take pain medication as prescribed follow-up with [facility] primary care [place]. And return ER for worsening headache nausea vomiting, worsening back pain numbness, tingling or weakness. documented in this encounter Assessments Diagnosis Ventral hernia without obstruction or gangrene- Primary Ventral hernia, unspecified, without mention of obstruction or gangrene Diagnosis Sprain of left wrist, initial encounter- Primary Diagnosis Intrauterine Abdominal pain, RLQ Abdominal pain, right lower quadrant LLQ abdominal pain Abdominal pain, left lower quadrant Pain, abdominal, RLQ Abdominal pain, right lower quadrant Pain, abdominal, LLQ Abdominal pain, left lower quadrant Diagnosis screening for malformation using ultrasonics Encounter for routine screening for malformation using ultrasonics Diagnosis Decreased movement affecting management of mother, antepartum Diagnosis Constipation, unspecified constipation type External hemorrhoids without complication External hemorrhoids without mention of complication Diagnosis Term Diagnosis Oligohydramnios, antepartum, single or unspecified fetus Diagnosis delivery delivered delivery, without mention of indication, delivered, with or without mention of antepartum condition Term Status post repeat low transverse section delivery, without mention of indication, unspecified as to episode of care Diagnosis Other complicated headache syndrome Diagnosis Local reaction to bee sting, accidental or unintentional, initial encounter Diagnosis Strain of lumbar region, initial encounter Diagnosis Flank pain- Primary Abdominal pain, unspecified site Diagnosis Non-intractable vomiting with nausea, unspecified vomiting type- Primary Positive test examination or test, positive result Diagnosis Right sided sciatica- Primary Sciatica Nonintractable headache, unspecified chronicity pattern, unspecified headache type Reason for Referral Status Reason Specialty Diagnoses / Procedures Referred By Contact Referred To Contact Pending Review Radiology Diagnoses Intrauterine Pain, abdominal, RLQ Pain, abdominal, LLQ Procedures US OB LESS THAN 14 WEEKS SINGLE OR FIRST GESTATION Iker Mosquera MD [address] [place] [address] Status Reason Specialty Diagnoses / Procedures Referred By Contact Referred To Contact Pending Review Radiology Diagnoses Intrauterine Abdominal pain, RLQ LLQ abdominal pain Procedures US OB TRANSVAGINAL Iker Mosquera MD [address] [place] [address] Status Reason Specialty Diagnoses / Procedures Referred By Contact Referred To Contact Pending Review Radiology Diagnoses screening for malformation using ultrasonics Procedures US OB 14 PLUS WEEKS SINGLE OR FIRST GESTATION Iker Mosquera MD [address] [place] [address] Status Reason Specialty Diagnoses / Procedures Referre d By Contact Referred To Contact Open Radiology Diagnoses Acute LUQ pain Procedures US ABDOMEN COMPLETE Iker Mosquera MD [address] [place] [address] Specialty Diagnoses / Procedures Referred By Contac t Referred To Contact Radiology Diagnoses Left breast mass Procedures LENA ILIR DIGITAL DIAGNOSTIC BILATERAL Iker Mosquera MD [address] [place] [address] Referral ID Status Reason Start Date Expiration Date Visits Re quested Visits Authorized [id number] Closed 06/02/2021 06/02/2022 1 1 History of Present Illness * Blanca Jack, RN - 08/05/2019 11:45 PM EDT Pt arrived to OB department with c/o constipation. States she hasn't had a normal BM in about a week. States she has had multiple BM's in the last couple days, but it is only in small amounts. States the stool is soft and normal color. States she is on iron. States she has been feeling the baby move as usual. Denies vaginal bleeding/leaking. States she has had some cramping, but only when she has to have a bowel movement. States she has had 1 emesis today around 11am, but ate dinner, chickenand macaroni and cheese, and has kept that down with no issues. States she has a hemorrhoid that iscausing her some discomfort at this time. States she has been straining when up to the bathroom. Instructed to provide a urine specimen if able. Pt agrees and denies further questions/concerns at this time. documented in this encounter* Iker Mosquera MD - 09/26/2019 11:01 AM EDT Subjective: Day 1: Delivery The patient feels tired. The patient denies emotional concerns. Pain is moderately controlled with current medications. The baby iswell. Baby is feeding via breast. Urinary output is adequate. The patient is ambulating well. The patient is tolerating a normal diet. Flatus admits to been passed. Objective: Patient Vitals for the past 8 hrs: BP Temp Temp src Pulse Resp 09/26/19 0815 (!) 110/55 98 F (36.7 C) Oral 65 18 09/26/19 0430 (!) 111/57 98 F (36.7 C) Oral 66 16 General: alert, appears stated age and cooperative Bowel Sounds: active Lochia: appropriate Uterine Fundus: firm Incision: {INCISION:65027:: covered with Acticoat dressing, sealed. DVT Evaluation: No evidence of DVT seen on physical exam. Assessment: Status post section. Doing well postoperatively. Plan: 1- Continue current care. * Evelina Walker RN - 09/25/2019 5:40 AM EDT Pt instructed to use chlorhexidine wipes. Instructions provided. Pt agreeable. documented in this encounter Hospital Course * Iker Mosquera MD - 09/27/2019 12:12 PM EDT Physician Discharge Summary Patient ID: Jodi Beltran [id number] 29 y.o. 1990 Admit date: 09/25/2019 Discharge date: Admitting Physician: Iker Mosquera Discharge Diagnoses: Term [Z34.90] Discharged Condition: Good Procedures Performed: section Hospital Course: Uncomplicated. Discharge Exam: BP 112/77 Pulse 68 Temp 98 F (36.7 C) (Oral) Resp 16 LMP 11/14/2018 SpO2 97% Unknown General Appearance: Alert, cooperative, no distress, appears stated age Head: Normocephalic, without obvious abnormality, atraumatic Eyes: PERRL, conjunctiva/corneas clear, EOM's intact, fundi benign, both eyes Ears: Normal TM's and external ear canals, both ears Nose: Nares normal, septum midline, mucosa normal, no drainage or sinus tenderness Throat: Lips, mucosa, and tongue normal; teeth and gums normal Neck: Supple, symmetrical, trachea midline, no adenopathy; thyroid: no enlargement/tenderness/nodules; no carotid bruit or JVD Back: Symmetric, no curvature, ROM normal, no CVA tenderness Lungs: Clear to auscultation bilaterally, respirations unlabored Chest Wall: No significant tenderness or deformity Heart: Regular rate and rhythm, S1 and S2 normal, no murmur, rub or gallop Breast Exam: No significant tenderness, normal puerperal findings. Abdomen: Soft, mild incisional tenderness, Acticoat dressing in place, sealed. No significant drainage. Genitalia: Healing well Rectal: Normal tone ;guaiac negative stool Extremities: Extremities normal, atraumatic, no cyanosis or edema Pulses: 2+ and symmetric all extremities Skin: Skin color, texture, turgor normal, no rashes or lesions Lymph nodes: Cervical, supraclavicular, and axillary nodes normal Neurologic: CNII-XII intact, normal strength, sensation and reflexes throughout Discharge Diagnosis: Status post Section. Stable, doing well. Disposition: Home. Patient Instructions: Activity: no heavy lifting (more than ten pounds) or sexual intercourse for six weeks. No driving for 4 weeks. General post operative recovery instructions were given with special emphasis on signs and symptomsof DVTs, PE, strokes, blues or depression, puerperal infections, preeclampsia, eclampsia. Diet: regular Wound Care: instructions given on Acticoat dressing care. Discharge Medication: Jodi Beltran Home Medication Instructions FUAD:[id number] Printed on:09/27/19 1212 Medication Information ferrous sulfate (IRON 325) 325 (65 Fe) MG tablet Take 325 mg by mouth 2 times daily Hydrocort-Pramoxine, Perianal, (PROCTOFOAM HC) 1-1 % rectal foam Apply 2 or 3 times a day as needed for pain ibuprofen (ADVIL;MOTRIN) 800 MG tablet Take 1 tablet by mouth 3 times daily as needed for Pain oxyCODONE-acetaminophen (PERCOCET) 5-325 MG per tablet Take 1 tablet by mouth every 4 hours as needed (Breakthrough pain.) for up to 3 days. Vit-DSS-Fe Fum-FA ( 19) 29-1 MG TABS Take 1 Dose by mouth daily Follow-up at my office in 7 days for theresa removal. Signed: Iker Mosquera 09/27/2019 12:12 PM documented in this encounter Additional Source Comments INFORMATION SOURCE (unrecogn ized section and content) DATE CREATED AUTHOR 09/11/2017 [facility] DATE CREATED AUTHOR AUTHOR'S ORGANIZ ATION 12/21/2018 [facility] DATE CREATED AUTHOR AUTHOR'S ORGANIZ ATION 12/21/2018 [facility] DATE CREATED AUTHOR AUTHOR'S ORGANIZ ATION 03/09/2022 [facility] DATE CREATED AUTHOR AUTHOR'S ORGANIZ ATION 07/19/2022 [facility]ical Specialist DATE CREATED AUTHOR AUTHOR'S ORGANIZ ATION 03/04/2023 [facility] EPIC Reason for Visit (unrecogniz ed section and content) Reason Comments Abdominal Pain onset yesterday; sta gerber nausea and lower back pain alsooooooooooooooooooooo Reason Comments Wrist Pain Left, onset this AM after falling Status Reason Specialty Diagnoses / Procedures Referre d By Contact Referred To Contact Open Radiology Diagnoses IUP (intrauterine ), incidental Left lower quadrant pain Procedures HC EVAL 1ST TRI SGL GEST Iker Mosquera MD [address] [place] [address] [facility] [address] [place] [address] Status Reason Specialty Diagnoses / Procedures Referre d By Contact Referred To Contact Open Radiology Diagnoses IUP (intrauterine ), incidental Procedures HC US ANATOMIC EVAL Iker Mosquera MD [address] [id number] [facility] [address] [place] [address] Reason Comments Lower Back Pain Reason Comments Decreased Movement Reason Comments Constipation Reason Comments Rectal Pain onset today. explain s struggling to have BM and has hemmroids Reason Comments Headache on going for 2days Status Reason Specialty Diagnoses / Procedures Referre d By Contact Referred To Contact Open Radiology Diagnoses Oligohydramnios, antepartum, single or unspecified fetus Procedures US BIOPHYSICAL PROFILE WO NON STRESS TESTING Iker Mosquera MD [address] [place] [address] Reason Comments Scheduled Reason Comments Migraine ongoing for past 4 d ays. Reason Comments Hand Pain swollen stung by bee Reason Comments Back Pain right lower, onset t his AM upon waking up Reason Comments Flank Pain pt C/O rt sided flan k pain that has been going on for the last 2 days. pt thinks she has a kidney stone. Emesis 6 times in the last 24 hours Reason Comments Emesis Pr reports it starte d last PM. Unable to work today Reason Comments Back Pain lower bilateral lowe r back pain, no known injury or trauma, onset sat Headache onset sat Reason Comments Abdominal Pain onset last week Diarrhea Back Pain right low back pain Reason Comments Cough onset last night. Pt states she is 10 weeks Pharyngitis Reason Comments Abdominal Pain pt states she has an umbilical hernia. Pt states she is having pain, hard to have a bm today Status Reason Specialty Diagnoses / Procedures Referred By Contact Referred To Contact Pending Review Radiology Diagnoses LUQ pain Left flank pain Procedures HC US ABDOMEN COMPLETE Iker Mosquera MD [address] [place] [address] [facility] [address] [place] [address] Specialty Diagnoses / Procedures Referred By Adrien zacarias Referred To Contact Radiology Diagnoses Left breast lump Procedures US BREAST LIMITED LEFT US BREAST COMPLETE LEFT Iker Mosquera MD [address] [place] [address] Referral ID Status Reason Start Date Expiration Date Visits Re quested Visits Authorized [id number] Open 05/31/2021 05/31/2022 1 1 Specialty Diagnoses / Procedures Referred By Adrien zacarias Referred To Contact Radiology Diagnoses Left breast mass Procedures LENA ILIR DIGITAL DIAGNOSTIC BILATERAL Iker Mosquera MD [address] [place] [address] Referral ID Status Reason Start Date Expiration Date Visits Re quested Visits Authorized [id number] Closed 06/02/2021 06/02/2022 1 1 Reason Comments Knee Pain 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 Pt reports discomfort with ROM Ordered Prescriptions (unrec ognized section and content) Prescription Sig Dispensed Refills Start Date End Da te lidocaine (LIDODERM) 5 % Place 1 patch onto the skin daily 12 hours on, 12 hours off. 10 patch 0 05/16/2020 Prescription Sig Dispensed Refills Start Date End Da te cyclobenzaprine (FLEXERIL) 10 MG tablet Take 1 tablet by mouth nightly as needed for Muscle spasms 5 tablet 0 10/03/2020 10/08/2020 ibuprofen (IBU) 600 MG tablet Take 1 tablet by mouth every 6 hours as needed for Pain 30 tablet 0 10/03/2020 ondansetron (ZOFRAN ODT) 4 MG disintegrating tablet Take 1 tablet by mouth every 8 hours as needed for Nausea or Vomiting 12 tablet 0 10/03/2020 10/07/2020 Scheduled Active and Recently Administ ered Medications (unrecognized section and content) Medication Order 10/01/2020 10/02/2020 10/03/2020 0.9 % sodium chloride bolus (COMPLETED) 1,000 mL (7.23 mL/kg), Intravenous, at 1,000 mL/hr, Administer over 1 Hours, ONCE, On Sat10/03/20 at 1400, For 1 dose 1507 (New Bag - Prov ider: Kristi Tovar RN)1659 (Stopped - Provider: Roseanne Montiel RN) ketorolac (TORADOL) injection 30 mg (COMPLETED) 30 mg, Intravenous, ONCE, On Sat10/03/20 at 1400, For 1 dose, Do not administer for more than 5 days. 1420 (Given - Provid er: Nikia Rodriguez, ABRAN) ondansetron (ZOFRAN) injection 4 mg (COMPLETED) 4 mg, Intravenous, ONCE, On Sat10/03/20 at 1400, For 1 dose 1418 (Given - Provid er: Nikia Rodriguez RN) PRN Medication Order 10/01/2020 10/02/2020 10/03/2020 iopamidol (ISOVUE-370) 76 % injection 75 mL (COMPLETED) 75 mL, Intravenous, IMG ONCE PRN, Other, Starting on 10/03/20 at 1452, For 1 dose 1452 (Given - Provid er: Jodi Hook) FOR RECORDS PERTAINING TO PATIENTS WHO ARE OR HAVE BEEN ENROLLED IN A CHEMICAL DEPENDENCY/SUBSTANCEABUSE PROGRAM, SOME INFORMATION MAY BE OMITTED. This clinical summary was aggregated from multiple sources. Caution should be exercised in using it in the provision of clinical care. This summary normalizes information from multiple sources, and as a consequence, information in this document may materially change the coding, format and clinical context of patient data. In addition, data may be omitted in some cases. CLINICAL DECISIONS SHOULD BE BASED ON THE PRIMARY CLINICAL RECORDS. [facility]. provides no warranty or guarantee of the accuracy or completeness of information in this document.
== END 2023-03-07 08:15 | disposition home or self-care (01) ==
PROVIDERS: Admitting Provider Obstetrics & Gynecology; Visit Provider Obstetrics & Gynecology
PROC: (CPT 59514; principal; 2023-03-07 07:30)
DX: O34.211 Maternal care for low transverse scar from previous cesarean delivery (principal); O32.1XX0 Maternal care for breech presentation, not applicable or unspecified; O99.333 Smoking (tobacco) complicating pregnancy, third trimester; O43.893 Other placental disorders, third trimester; O99.820 Streptococcus B carrier state complicating pregnancy; Z3A.39 39 weeks gestation of pregnancy; O26.893 Other specified pregnancy related conditions, third trimester; Z67.11 Type A blood, Rh negative; F17.210 Nicotine dependence, cigarettes, uncomplicated
CPT/HCPCS: 36415; 51702; 80307; 81001; 85025; 86850; 86900; 86901; 96374; 96375; G0378